=== PATIENT | male | born 1960 | race Caucasian/White ===

== ENCOUNTER 2018-03-07 11:06 | Inpatient (IN) | payer MEDICAID, OTHER, SELFPAY ==
--- NOTE | 2018-03-07 12:01 | RAD ---
CHEST 2 VIEWS: Date: 03/07/18 HISTORY: Chest pain. COMPARISON: 05/14/14. FINDINGS: Cardiac silhouette and pulmonary vasculature are unremarkable. Left hemidiaphragm remains elevated wi th scarring at the left base. Mediastinum is midline with postoperative changes. No confluent air spa ce consolidation, pneumothorax, or pleural fluid. IMPRESSION: Chronic-type findings are stable. No active cardiopulmonary abnormalities are demonstrated. POS: H
[2018-03-07] MEDS ORDERED: Ketorolac Tromethamine 30 MG/ML VIAL ONE (12:35)
[2018-03-07 12:50] LABS: ALT (SGPT) 77 U/L (8-55); AST (SGOT) 42 U/L (5-34); Albumin 4.5 g/dL (3.5-5.0); Alkaline Phosphatase 147 U/L (40-150); Anion Gap 17 mmol/L (10-20); BUN (Urea Nitrogen) 14 mg/dL (8.4-25.7); Bilirubin, Total 1.4 mg/dL (0.2-1.2); Calc. Creatinine Clearance 0 mL/min (70-130); Calcium 9.9 mg/dL (7.8-10.44); Carbon Dioxide 23 mmol/L (22-29); Chloride 102 mmol/L (98-107); Estimated GFR-MDRD 73; Globulin 3.6 g/dL (2.4-3.5); Glucose 106 mg/dL (70-105); Potassium 4.4 mmol/L (3.5-5.1); Protein, Total 8.1 g/dL (6.0-8.3); Sodium 138 mmol/L (136-145)
[2018-03-07 12:54] LABS: #Basophils 0.1 thou/uL (0.0-0.2); #Eosinphils 0.2 thou/uL (0.0-0.7); #Monocytes 0.8 thou/uL (0.11-0.59); #Neutrophils 10.5 thou/uL (1.40-6.50); %Basophils 0.4 % (0.0-1.0); %Eosinophils 1.3 % (0.0-10.0); %Lymphocytes 14.7 % (21.0-51.0); %Monocytes 5.8 % (0.0-10.0); %Neutrophils 77.8 % (42.0-75.0); Hemoglobin 15.3 g/dL (14.0-18.0); Mean Corpuscular HGB CONC 33.9 g/dL (32.0-36.0); Mean Corpuscular Hemoglobin 30.6 pg (27.0-31.0); Mean Corpuscular Volume 90.1 fL (78.0-98.0); Mean Platelet Volume 6.8 fL (7.4-10.4); Platelet Count 343 thou/uL (130-400); RBC Distribution Width 12.8 % (11.5-14.5); White Blood Cell (WBC) Count 13.5 thou/uL (4.8-10.8)
[2018-03-07] MEDS ORDERED: Nitroglycerin 0.4 MG TAB (25 Tab Bottle) ONE (14:39)
--- NOTE | 2018-03-07 15:50 | CT ---
CT ANGIOGRAM CHEST WITH CONTRAST: Date: 03/07/18 HISTORY: Chest pain. COMPARISON: Radiograph from same date. FINDINGS: Scarring right lung base. There is dilatation of the ascending aorta measuring 4.3 cm. The transverse and descending aorta are normal. There is no proximal segmental pulmonary arterial filling defect. Small hilar and subcarinal pretrach eal lymph nodes. None of these measure over 1.0 cm in short axis. No pericardial effusion. Chronic el evation left hemidiaphragm. Although incompletely evaluated, there is some inflammatory change around the second portion of the d uodenum at the pancreaticoduodenal groove. There is no acute osseous abnormality. No suspicious osteo lytic or osteoblastic lesions. IMPRESSION: 1. No proximal segment pulmonary arterial filling defect. 2. Dilatation of ascending aorta which measures up to 4.3 cm. 3. Inflammatory change along gastric pylorus, as well as first portion of duodenum, similar to the 2 015 examination. Nonemergent upper endoscopy recommended. 4. Chronic elevation left hemidiaphragm. 5. Small right gastric lymph nodes are similar. POS: ANAHI
[2018-03-07] MEDS ORDERED: Iopamidol 370 76% 100 ML VIAL ONE (17:14)
[2018-03-07 17:27] LABS: Troponin I Less than 0.010 ng/mL (< 0.028)
[2018-03-07 17:39] VITALS: BMI 22.6
[2018-03-07] MEDS ORDERED: Ondansetron ODT 4 MG TAB SL PRN (17:43)
[2018-03-07] MEDS ORDERED: Ondansetron PF 4 MG/2 ML Vial IVP PRN (17:43)
[2018-03-07] MEDS: Sodium Chloride 0.9% 1,000 ML IV SCH (17:52)
[2018-03-07] MEDS: Acetaminophen 325 MG TAB PO PRN ×2 (19:06→23:56)
[2018-03-07 20:03] LABS: Troponin I Less than 0.010 ng/mL (< 0.028)
[2018-03-07] MEDS: Morphine 4 MG/ML VIAL SLOW IVP PRN (21:49)
[2018-03-07] MEDS: Famotidine 20 MG TAB PO SCH (22:34)
--- NOTE | 2018-03-07 22:34 | PDOC.EVN ---
Event Note - Event Note Event Note: Called by nurse for several episodes of Atrial Fib, also present on new EKG. New onset. Patient has hx of Atrial flutter and had ablation in 2013. Ordered Cardizem IVP 15mg x1 dose. Will consult Cardiology in AM.
[2018-03-07 23:21] LABS: Bilirubin Negative (Negative); Blood, Urine Negative (Negative); Clarity CLEAR (Clear); Glucose, Urine (Dipstick) Negative (Negative); Leukocyte Negative (Negative); Nitrite Negative (Negative); Protein, Urine (Dipstick) Negative (Neg-Trace)
[2018-03-07 23:24] LABS: Bacteria/HPF None Seen HPF (None Seen); Hyaline Casts/LPF 0-3 HYALINE CAST LPF (0-3 Hyaline); Pathc Cast-AUWi Flag 0.14 (0-2.49); RBC/HPF 0-3 HPF (0-3); Squamous Epithelial None Seen HPF (0-3); WBC/HPF 0-3 HPF (0-3)
[2018-03-07 23:33] LABS: Cocaine Metabolite Screen Not Detected (NotDetected); Medtox Reader # READER 4; Methamphetamine Detected (NotDetected); Opiate Screen Not Detected (NotDetected); Phencyclidine (PCP) Not Detected (NotDetected); THC/Cannabinoid Screen Not Detected (NotDetected)
[2018-03-07 23:34] LABS: Amphetamine Detected (NotDetected); Barbiturates Screen Not Detected (NotDetected); Benzodiazepine Screen Not Detected (NotDetected); Medtox Control Line Valid? VALID (VALID); Methadone Not Detected (NotDetected); Oxycodone Screen Not Detected (NotDetected); Tricyclic Screen Not Detected (NotDetected)
[2018-03-07] MEDS: Zolpidem Tartrate 5 MG TAB PO PRN (23:56)
--- NOTE | 2018-03-08 00:39 | HP ---
PRIMARY CARE PHYSICIAN: None. CHIEF COMPLAINT: Chest pain. HISTORY OF PRESENT ILLNESS: This is a 57-year-old male who was admitted through the emergency room where he presented for chest pain, which he reports has been intermittent for the last week primarily. He complains of pain under his ribs, also left chest. Reports that it feels very similar to his episode of chest pain in 2013, which was diagnosed as pleurisy. Reports that he was given some NSAIDs and got better. The patient reports that he had a bypass in 2013, although I cannot find any history, but I do find in 2014, he did have an aortic valve replacement and did have a mitral valve repair by Dr. Bradley, who patient reports did the bypass 5 years ago. The patient does report he is a regular user of methamphetamine. Reports the last time he used it was a week ago. Reports he has a cough and shortness of breath with this pain and it is exacerbated by deep breath. During evaluation in the emergency room, his initial troponin was undetectable. He did undergo a CTA angio of the chest, which showed no proximal segment pulmonary artifact, arterial filling defect, dilatation of the ascending aorta which measures 4.3, some inflammatory change along the gastric pylorus, which is similar to the 2015 exam and now an emergent upper endoscopy is recommended. Chronic elevation of the left hemidiaphragm and small right gastric lymph nodes which are similar. The patient was admitted to the emergency room for further management. The patient also has history of atrial flutter and underwent ablation in June of [address] Bassett. The patient has a past medical history of COPD, seizure disorder, hypertension, also admits to smoking at least half pack of tobacco a day. The patient will be admitted to the observation unit for further management. PAST MEDICAL HISTORY: As above. PAST SURGICAL HISTORY: Aortic valve replacement, mitral valve replacement in 2013. CURRENT MEDICATIONS: None. ALLERGIES: NONE. FAMILY HISTORY: Patient denies family history of any cardiac issues. REVIEW OF SYSTEMS: CONSTITUTIONAL: The patient denies chills or fever. EYES: The patient denies eye pain. Denies vision changes. ENT: Denies rhinorrhea or sore throat. CARDIOVASCULAR: Reports chest pain. Denies palpitations. RESPIRATORY: Reports cough, some shortness of breath. GI: Denies any abdominal pain. Denies diarrhea. Denies nausea. Denies vomiting. : Denies dysuria, hematuria. MUSCULOSKELETAL: Denies back pain, fall or injury. SKIN: Denies any skin changes. NEUROLOGIC: Denies headache. PHYSICAL EXAMINATION: VITAL SIGNS: Blood pressure 137/92, pulse is 83, respirations are 20. Pain is 7, pO2 sats 98% on room air. CONSTITUTIONAL: The patient appears nontoxic, reports some mild pain and distress. He is alert and oriented to person, place, and time. HEAD: Head is atraumatic and normocephalic. EYES: Pupils are equal, round, and reactive to light. ENT: Mouth exam is normal. Mucous membranes are moist. NECK: Normal range of motion. Trachea is midline. RESPIRATORY/CHEST: Breath sounds are clear. No findings of respiratory distress. CARDIOVASCULAR: Regular heart rate and rhythm. Heart sounds are normal. ABDOMEN: Male. Abdomen is nontender. Bowel sounds are heard. BACK: Normal inspection. Normal range of motion. EXTREMITIES: Upper extremities, normal range of motion. Motor strength is normal. Sensation is intact. Lower extremities, normal range of motion. Sensation intact. Pedal pulses are normal. NEURO: The patient is oriented to person, place, and time. SKIN: Warm, dry, normal in color. PSYCH: Normal affect. PERTINENT LABORATORY DATA: White blood cell count is 13.5, hemoglobin 15.3, hematocrit 45.1, platelet count is 243. Sodium 138, potassium 4.4, chloride 102, carbon dioxide 23, anion gap is 17, BUN is 14, creatinine is 1.05, GFR is 73, glucose 106, calcium 9.9, bilirubin total is 1.4. AST is 42, ALT is 77, alkaline phosphatase is 147. Troponin x2 is undetectable. Albumin is 4.5, globulin is 3.6, lipase is 16. ASSESSMENT AND PLAN: 1. Chest pain. We will obtain an echocardiogram. We will trend troponins. We will order a stress test. 2. History of hypertension. We will trend and add medication as needed. 3. Tobacco abuse. We will offer education and counseling. 4. Deep venous thrombosis. Deep venous thrombosis prophylaxis will be started. 5. Hospital course will be dependent on clinical findings. Job ID: [id number]
[2018-03-08] MEDS: Morphine 4 MG/ML VIAL SLOW IVP PRN ×2 (01:25→16:19)
[2018-03-08] MEDS: Sodium Chloride 0.9% 1,000 ML IV SCH (04:15)
[2018-03-08 06:19] LABS: #Basophils 0.1 thou/uL (0.0-0.2); #Eosinphils 0.1 thou/uL (0.0-0.7); #Lymphocytes 2.4 thou/uL (1.20-3.40); #Neutrophils 9.2 thou/uL (1.40-6.50); %Basophils 0.6 % (0.0-1.0); %Eosinophils 0.8 % (0.0-10.0); %Lymphocytes 18.9 % (21.0-51.0); %Monocytes 7.6 % (0.0-10.0); Hemoglobin 13.1 g/dL (14.0-18.0); Mean Corpuscular HGB CONC 34.1 g/dL (32.0-36.0); Mean Corpuscular Hemoglobin 31.1 pg (27.0-31.0); Mean Corpuscular Volume 91.3 fL (78.0-98.0); Mean Platelet Volume 6.6 fL (7.4-10.4); Platelet Count 340 thou/uL (130-400); RBC Distribution Width 12.9 % (11.5-14.5); Red Blood Cell (RBC) Count 4.21 mill/uL (4.70-6.10); White Blood Cell (WBC) Count 12.8 thou/uL (4.8-10.8)
[2018-03-08 06:41] LABS: ALT (SGPT) 56 U/L (8-55); AST (SGOT) 23 U/L (5-34); Albumin 3.7 g/dL (3.5-5.0); Alkaline Phosphatase 122 U/L (40-150); Anion Gap 11 mmol/L (10-20); BUN (Urea Nitrogen) 11 mg/dL (8.4-25.7); Bilirubin, Total 0.8 mg/dL (0.2-1.2); Calc. Creatinine Clearance 98 mL/min (70-130); Calcium 8.6 mg/dL (7.8-10.44); Carbon Dioxide 22 mmol/L (22-29); Chloride 106 mmol/L (98-107); Estimated GFR-MDRD Greater than 90; Globulin 2.9 g/dL (2.4-3.5); Glucose 111 mg/dL (70-105); Protein, Total 6.6 g/dL (6.0-8.3); Sodium 135 mmol/L (136-145)
[2018-03-08] MEDS ORDERED: Enoxaparin Sodium 40 MG/0.4 ML SYRINGE SC SCH ×2 (09:00)
[2018-03-08] MEDS: Enoxaparin Sodium 80 MG/0.8 ML SYRINGE SC SCH (13:58)
[2018-03-08] MEDS: Famotidine 20 MG TAB PO SCH ×2 (13:58→20:31)
--- NOTE | 2018-03-08 15:29 | PDOC.PN ---
- Subjective Encounter Start Date: 03/08/18 Encounter Start Time: 15:27 Patient lying in bed, chest pain is stable. Denies shortness of breath. Cardiology services evaluated patient for a fib. Started on coumadin and Lovenox. No signs of bleeding at this time. Awaiting echo. - Objective Resuscitation Status - Order Detail: 03/07/18 17:54 Resuscitation Status Routine Co-Sign Provider: Resuscitation Status: FULL: Full Resuscitation Discussed with: patient MAR Reviewed: Yes Vital Signs & Weight: Vital Signs (12 hours) Temp Pulse Resp BP Pulse Ox 03/08/18 15:02 98.5 F 79 18 135/91 H 97 03/08/18 11:42 98.1 F 78 20 126/80 98 03/08/18 06:37 98.8 F 73 16 104/63 96 Weight Weight 158 lb 1 oz I&O: 03/07/18 03/08/18 03/09/18 06:59 06:59 06:59 Intake Total 2342 Output Total 210 Balance 2132 Result Diagrams: 03/08/18 05:44 03/08/18 05:44 Radiology Reviewed by me: Yes EKG Reviewed by me: Yes Phys Exam - Physical Examination Constitutional: NAD HEENT: PERRLA, moist MMs, oral pharynx no lesions Neck: no nodes, no JVD, supple Respiratory: no wheezing, no rales, no rhonchi, clear to auscultation bilateral Cardiovascular: RRR, no significant murmur, no rub Gastrointestinal: soft, non-tender, no distention, positive bowel sounds Musculoskeletal: no edema, pulses present Neurological: non-focal, normal sensation, moves all 4 limbs Lymphatic: no nodes Psychiatric: normal affect, A&O x 3 Skin: no rash, normal turgor, cap refill <2 seconds Dx/Plan (1) Chest pain Code(s): R07.9 - CHEST PAIN, UNSPECIFIED Status: Acute (2) Atrial fibrillation Code(s): I48.91 - UNSPECIFIED ATRIAL FIBRILLATION Status: Acute (3) Hypertension Code(s): I10 - ESSENTIAL (PRIMARY) HYPERTENSION Status: Acute - Plan cont current plan of care, DVT proph w/lovenox * Continue medical management with lovenox with coumadin, monitor INR * Cardiology services, Dr Still following and appreciating recommendations * Await echo results * Monitor VS and labs closely with further adjustments to meds accordingly.
[2018-03-08] MEDS: Warfarin Sodium 5 MG TAB PO SCH (16:20)
--- NOTE | 2018-03-08 17:08 | EKG ---
Test Reason : CHEST PAIN Blood Pressure : / mmHG Vent. Rate : 133 BPM Atrial Rate : 326 BPM P-R Int : 000 ms QRS Dur : 076 ms QT Int : 322 ms P-R-T Axes : 000 090 010 degrees QTc Int : 479 ms Atrial fibrillation with rapid ventricular response with premature ventricular or aberrantly conducte d complexes Rightward axis Abnormal ECG When compared with ECG of 14-MAY-2014 00:58, Atrial fibrillation has replaced Sinus rhythm ST now depressed in Inferior leads ST now depressed in Lateral leads T wave inversion now evident in Inferior leads Nonspecific T wave abnormality now evident in Lateral leads Confirmed by DR. David CUMMINS ([id number]) on 03/08/2018 5:08:00 PM Referred By: CATHY Confirmed By:DR. David CUMMINS
[2018-03-08] MEDS: Zolpidem Tartrate 5 MG TAB PO PRN (20:31)
--- NOTE | 2018-03-09 04:38 | CON ---
DATE OF CONSULTATION: HISTORY OF PRESENT ILLNESS: The patient is a 57-year-old gentleman, who presents with lower chest and abdominal discomfort. The patient has a history of valvular heart disease. In 2013, he underwent aortic valve replacement and mitral valve repair. The patient has been noncompliant with his followup and medications. The patient was in his usual state of health when a week ago, he developed discomfort along his lower ribs. This was an intermittent discomfort for several days. The discomfort lasts for approximately 3 to 4 hours at a time. It resolved for 2 days and returned a few days ago. The patient reports having the same discomfort which is more persistent. He states the discomfort was worse when he takes a deep breath. The patient received Toradol and has had no further chest discomfort. The patient was noted to have regular heart rate during his hospitalization. The patient denies any palpitations. PAST MEDICAL HISTORY: 1. Aortic valve replacement. 2. Mitral valve replacement. 3. COPD. 4. Substance abuse. 5. History of atrial flutter. PAST SURGICAL HISTORY: Aortic valve replacement and mitral valve repair. SOCIAL HISTORY: He smokes a half pack per day and uses illicit drugs. FAMILY HISTORY: No strong family history of heart disease. ALLERGIES: NO KNOWN DRUG ALLERGIES. MEDICATIONS: None. REVIEW OF SYSTEMS: A 10-point system otherwise is unremarkable. PHYSICAL EXAMINATION: GENERAL: This is a thin gentleman, who looks older than stated age. VITAL SIGNS: Blood pressure 165/94. NECK: Showed no jugular venous distention. LUNGS: Coarse breath sounds bilaterally. HEART: Regular rate and rhythm. Normal S1 and S2. No murmurs. ABDOMEN: Nondistended. EXTREMITIES: Showed no edema. VASCULAR: Radial pulses 2+. LABORATORY RESULTS: Sodium 135, potassium 4.0, chloride 106, bicarb 22, BUN 11, creatinine 0.86, glucose 111. White blood cell count 12.8, hemoglobin 13.1, hematocrit 38.5, and platelets 340. EKG revealed normal sinus rhythm, otherwise normal ECG. Follow up EKG #2 revealed atrial fibrillation with nonspecific ST abnormality. IMPRESSION: 1. Chest pain, atypical. 2. History aortic valve replacement/mitral valve replacement. 3. New onset atrial fibrillation. 4. History of atrial flutter. 5. Chronic obstructive pulmonary disease. 6. Substance abuse. This gentleman presented with atypical chest pain. This is suggestive of pleurisy. The patient has new onset atrial fibrillation. He has several risk factors. I would recommend the patient be on anticoagulation therapy. However, he has a long history of illicit drug use and noncompliance. We will start the patient on Lovenox and Coumadin. We will follow this patient with you through his hospitalization. Job ID: [id number] MTDD
[2018-03-09 05:40] LABS: #Basophils 0.1 thou/uL (0.0-0.2); #Eosinphils 0.2 thou/uL (0.0-0.7); #Lymphocytes 2.7 thou/uL (1.20-3.40); #Neutrophils 8.6 thou/uL (1.40-6.50); %Basophils 0.7 % (0.0-1.0); %Eosinophils 1.3 % (0.0-10.0); %Lymphocytes 21.2 % (21.0-51.0); %Monocytes 8.2 % (0.0-10.0); %Neutrophils 68.6 % (42.0-75.0); Hemoglobin 14.3 g/dL (14.0-18.0); Mean Corpuscular Hemoglobin 31.1 pg (27.0-31.0); Mean Corpuscular Volume 91.6 fL (78.0-98.0); Mean Platelet Volume 6.3 fL (7.4-10.4); Platelet Count 393 thou/uL (130-400); RBC Distribution Width 12.9 % (11.5-14.5); Red Blood Cell (RBC) Count 4.58 mill/uL (4.70-6.10); White Blood Cell (WBC) Count 12.6 thou/uL (4.8-10.8)
[2018-03-09 06:08] LABS: ALT (SGPT) 51 U/L (8-55); AST (SGOT) 23 U/L (5-34); Albumin 3.8 g/dL (3.5-5.0); Alkaline Phosphatase 130 U/L (40-150); Anion Gap 12 mmol/L (10-20); BUN (Urea Nitrogen) 13 mg/dL (8.4-25.7); Bilirubin, Total 0.8 mg/dL (0.2-1.2); Calc. Creatinine Clearance 91 mL/min (70-130); Calcium 9.3 mg/dL (7.8-10.44); Carbon Dioxide 26 mmol/L (22-29); Chloride 104 mmol/L (98-107); Estimated GFR-MDRD 84; Globulin 3.2 g/dL (2.4-3.5); Glucose 96 mg/dL (70-105); Potassium 4.4 mmol/L (3.5-5.1); Sodium 138 mmol/L (136-145)
[2018-03-09] MEDS: Famotidine 20 MG TAB PO SCH ×2 (08:06→20:24)
[2018-03-09] MEDS: Enoxaparin Sodium 80 MG/0.8 ML SYRINGE SC SCH (08:06)
[2018-03-09] MEDS ORDERED: traMADol HCl 50 MG TAB PO PRN (16:05)
[2018-03-09] MEDS ORDERED: Acetaminophen 325 MG TAB PO PRN (16:05)
[2018-03-09] MEDS: Warfarin Sodium 5 MG TAB PO SCH (16:31)
--- NOTE | 2018-03-09 16:49 | PDOC.EVN ---
Event Note - Event Note Event Note: discussed management with Jing DOVER, agree with management
[2018-03-09] MEDS ORDERED: Warfarin Sodium 2.5 MG TAB PO SCH (17:00)
--- NOTE | 2018-03-09 17:18 | PDOC.PN ---
- Subjective Encounter Start Date: 03/09/18 Encounter Start Time: 17:16 Patient lying in bed, denies any events over night. Denies chest pain or shortness of breath. Echo showing EF 55-60%, continuing on coumadin and lovenox. - Objective Resuscitation Status - Order Detail: 03/07/18 17:54 Resuscitation Status Routine Co-Sign Provider: Resuscitation Status: FULL: Full Resuscitation Discussed with: patient MAR Reviewed: Yes Vital Signs & Weight: Vital Signs (12 hours) Temp Pulse Resp BP BP Pulse Ox 03/09/18 15:10 98.7 F 76 21 H 142/67 H 98 03/09/18 11:50 98.2 F 79 16 126/74 96 03/09/18 08:00 99 F 80 16 134/77 95 Weight Weight 158 lb 1 oz I&O: 03/08/18 03/09/18 03/10/18 06:59 06:59 06:59 Intake Total 2342 1200 Output Total 210 600 Balance 2132 600 Result Diagrams: 03/09/18 05:33 03/09/18 05:33 Radiology Reviewed by me: Yes Phys Exam - Physical Examination Constitutional: NAD HEENT: PERRLA, moist MMs, 2+ tonsils Neck: no nodes, no JVD, supple Respiratory: no wheezing, no rales, no rhonchi, clear to auscultation bilateral Cardiovascular: RRR, no significant murmur, no rub Gastrointestinal: soft, non-tender, no distention, positive bowel sounds Musculoskeletal: no edema, pulses present Neurological: non-focal, normal sensation, moves all 4 limbs Lymphatic: no nodes Psychiatric: normal affect, A&O x 3 Skin: no rash, normal turgor, cap refill <2 seconds Dx/Plan (1) Chest pain Code(s): R07.9 - CHEST PAIN, UNSPECIFIED Status: Acute (2) Atrial fibrillation Code(s): I48.91 - UNSPECIFIED ATRIAL FIBRILLATION Status: Acute (3) Hypertension Code(s): I10 - ESSENTIAL (PRIMARY) HYPERTENSION Status: Acute - Plan cont current plan of care, DVT proph w/lovenox * Continue lovenox and coumadin, add 2.5mg coumadin for total of 7.5mg tonight * Monitor PT/INR, goal is 2.5-3.5 * Continue current medical management * Cardiology services following
[2018-03-10 06:52] LABS: Platelet Count 399 thou/uL (130-400)
[2018-03-10 06:59] LABS: INR-International Normal Ratio 1.1; Prothrombin Time 13.9 SEC (12.0-14.7)
[2018-03-10 07:04] LABS: Calc. Creatinine Clearance 100 mL/min (70-130); Estimated GFR-MDRD Greater than 90
[2018-03-10] MEDS: Enoxaparin Sodium 80 MG/0.8 ML SYRINGE SC SCH (09:28)
[2018-03-10] MEDS: Famotidine 20 MG TAB PO SCH (09:28)
[2018-03-10 15:41] VITALS: BP 136/75; TEMP 98
[2018-03-10] MEDS: Warfarin Sodium 5 MG TAB PO SCH (17:47)
== END 2018-03-10 17:48 | disposition home or self-care (01) | DRG 310 ==
LOC: ERS 11:06 → OBSVTOIN 16:23 → 2SW 16:23
PROVIDERS: ADMIT Internal Medicine; ATTEND Internal Medicine
PROC: B246ZZZ Ultrasonography of Right and Left Heart (ICD-10-PCS; principal; 2018-03-09)
DX: I48.91 Unspecified atrial fibrillation (principal); I10 Essential (primary) hypertension; Z91.14 Patient's other noncompliance with medication regimen; J44.9 Chronic obstructive pulmonary disease, unspecified; F19.10 Other psychoactive substance abuse, uncomplicated; R09.1 Pleurisy; Z95.2 Presence of prosthetic heart valve
CPT/HCPCS: 36415; 71046; 71275; 80053; 80306; 81001; 82565; 83690; 84484; 85014; 85018; 85025; 85049; 85610; 93005; 93010; 93306; 94640; 96374; J1650; J1885; J2270; J2405

== ENCOUNTER 2020-06-03 11:22 | Inpatient (IN) | payer SELFPAY ==
[2020-06-03 12:04] LABS: #Basophils 0.1 thou/uL (0.0-0.2); #Eosinphils 0.1 thou/uL (0.0-0.7); #Lymphocytes 2.1 thou/uL (1.20-3.40); #Monocytes 0.9 thou/uL (0.11-0.59); #Neutrophils 7.7 thou/uL (1.40-6.50); %Basophils 0.6 % (0.0-1.0); %Lymphocytes 19.5 % (21.0-51.0); %Monocytes 8.2 % (0.0-10.0); %Neutrophils 70.7 % (42.0-75.0); Hemoglobin 13.7 g/dL (14.0-18.0); Mean Corpuscular HGB CONC 32.3 g/dL (32.0-36.0); Mean Corpuscular Hemoglobin 30.1 pg (27.0-31.0); Mean Corpuscular Volume 93.2 fL (78.0-98.0); Mean Platelet Volume 7.3 fL (7.4-10.4); Platelet Count 223 thou/uL (130-400); Red Blood Cell (RBC) Count 4.53 mill/uL (4.70-6.10); White Blood Cell (WBC) Count 10.9 thou/uL (4.8-10.8)
[2020-06-03 12:23] LABS: ALT (SGPT) 35 U/L (8-55); AST (SGOT) 25 U/L (5-34); Albumin 3.3 g/dL (3.5-5.0); Alkaline Phosphatase 197 U/L (40-110); Anion Gap 13 mmol/L (10-20); BUN (Urea Nitrogen) 17 mg/dL (8.4-25.7); Bilirubin, Total 2.6 mg/dL (0.2-1.2); Calc. Creatinine Clearance 0 mL/min (70-130); Calcium 8.5 mg/dL (7.8-10.44); Carbon Dioxide 28 mmol/L (22-29); Chloride 104 mmol/L (98-107); Globulin 3.1 g/dL (2.4-3.5); Glucose 123 mg/dL (70-105); Potassium 3.6 mmol/L (3.5-5.1); Protein, Total 6.4 g/dL (6.0-8.3); Sodium 141 mmol/L (136-145)
[2020-06-03 12:48] LABS: CKMB 9.4 ng/mL (0-6.6)
[2020-06-03] MEDS ORDERED: Aspirin Chewable 81 MG TAB ONE (12:50)
[2020-06-03] MEDS ORDERED: Diltiazem 125 MG/25 ML ONE (12:50)
[2020-06-03] MEDS ORDERED: Enoxaparin Sodium 80 MG/0.8 ML SYRINGE ONE (12:50)
[2020-06-03] MEDS ORDERED: Furosemide 40 MG/4 ML VIAL SLOW IVP SCH (13:45)
[2020-06-03 13:47] LABS: INR-International Normal Ratio 1.1; PTT 27.1 sec (22.9-36.1); Prothrombin Time 14.3 sec (12.0-14.7)
[2020-06-03] MEDS ORDERED: Ondansetron ODT 4 MG TAB PO PRN (13:51)
[2020-06-03] MEDS ORDERED: Acetaminophen 325 MG TAB PO PRN (13:51)
[2020-06-03] MEDS ORDERED: Calcium Carbonate 500 MG ChewTAB PO PRN (13:51)
[2020-06-03] MEDS ORDERED: Ondansetron PF 4 MG/2 ML Vial IVP PRN (13:51)
[2020-06-03 14:04] LABS: SARS-CoV-2 NAA Rapid Test Not Detected (NotDetected)
[2020-06-03] MEDS ORDERED: Ipratropium Oral Inhaler INH PRN (14:26)
[2020-06-03] MEDS ORDERED: Magnesium 2 GM/50 ML 2 GM in Premix Bag 1 BAG IVPB SCH (14:30)
[2020-06-03 15:21] VITALS: BMI 24.4
[2020-06-03] MEDS: Nicotine 14 MG PATCH TD SCH (16:05)
[2020-06-03] MEDS: Nitroglycerin 2% Ointment 1 INCH/1 GM Packet TOP SCH ×2 (16:13→20:37)
[2020-06-03 16:58] LABS: Bacteria/HPF None Seen HPF (None Seen); Bilirubin Negative (Negative); Blood, Urine Negative (Negative); Clarity Clear (Clear); Glucose, Urine (Dipstick) Normal (Negative); Ketone, Urine Negative (Negative); Leukocyte Negative Leu/uL (Negative); Nitrite Negative (Negative); Protein, Urine (Dipstick) Negative (Neg-Trace); RBC/HPF 0-3 HPF (0-3); Specific Gravity, Urine 1.015 (1.002-1.036); Squamous Epithelial None Seen HPF (0-3); WBC/HPF 0-3 HPF (0-3); pH, Urine 5.5 (5.0-9.0)
[2020-06-03 18:13] LABS: Amphetamine Detected (NotDetected); Barbiturates Screen Not Detected (NotDetected); Benzodiazepine Screen Not Detected (NotDetected); Cocaine Metabolite Screen Not Detected (NotDetected); Medtox Reader # READER 1; Methadone Not Detected (NotDetected); Methamphetamine Detected (NotDetected); Opiate Screen Not Detected (NotDetected); Phencyclidine (PCP) Not Detected (NotDetected); THC/Cannabinoid Screen Not Detected (NotDetected); Tricyclic Screen Not Detected (NotDetected)
[2020-06-03 18:14] LABS: Medtox Control Line Valid? VALID (VALID); Oxycodone Screen Not Detected (NotDetected)
[2020-06-03 18:38] LABS: Troponin I 0.033 ng/mL (< 0.028)
[2020-06-03] MEDS: Enoxaparin Sodium 80 MG/0.8 ML SYRINGE SC SCH (20:38)
[2020-06-04] MEDS: Diltiazem 125 MG in Sodium Chloride 0.9% 100 ML IVPB SCH (04:15)
[2020-06-04] MEDS: Nitroglycerin 2% Ointment 1 INCH/1 GM Packet TOP SCH ×4 (04:18→20:33)
[2020-06-04 04:30] LABS: #Basophils 0.1 thou/uL (0.0-0.2); #Eosinphils 0.2 thou/uL (0.0-0.7); #Lymphocytes 2.6 thou/uL (1.20-3.40); #Monocytes 0.9 thou/uL (0.11-0.59); #Neutrophils 6.7 thou/uL (1.40-6.50); %Basophils 0.9 % (0.0-1.0); %Eosinophils 2.3 % (0.0-10.0); %Lymphocytes 24.7 % (21.0-51.0); %Monocytes 8.9 % (0.0-10.0); %Neutrophils 63.1 % (42.0-75.0); Hemoglobin 13.6 g/dL (14.0-18.0); Mean Corpuscular HGB CONC 32.6 g/dL (32.0-36.0); Mean Corpuscular Hemoglobin 30.3 pg (27.0-31.0); Mean Corpuscular Volume 93.1 fL (78.0-98.0); Mean Platelet Volume 7.3 fL (7.4-10.4); Platelet Count 228 thou/uL (130-400); RBC Distribution Width 13.2 % (11.5-14.5); Red Blood Cell (RBC) Count 4.47 mill/uL (4.70-6.10); White Blood Cell (WBC) Count 10.6 thou/uL (4.8-10.8)
[2020-06-04 04:53] LABS: ALT (SGPT) 35 U/L (8-55); AST (SGOT) 22 U/L (5-34); Albumin 3.2 g/dL (3.5-5.0); Alkaline Phosphatase 194 U/L (40-110); Anion Gap 16 mmol/L (10-20); BUN (Urea Nitrogen) 17 mg/dL (8.4-25.7); Bilirubin, Total 2.5 mg/dL (0.2-1.2); Calc. Creatinine Clearance 77 mL/min (70-130); Calcium 8.5 mg/dL (7.8-10.44); Carbon Dioxide 22 mmol/L (22-29); Chloride 104 mmol/L (98-107); Glucose 84 mg/dL (70-105); Potassium 3.6 mmol/L (3.5-5.1); Protein, Total 6.5 g/dL (6.0-8.3); Sodium 138 mmol/L (136-145)
[2020-06-04 05:11] LABS: HBCM Index 0.05 S/CO (0-0.79); HBSAg Index 0.24 S/CO (0-0.99); Hep A IgM AB Non-Reactive (NonReactive); Hep A IgM S/CO 0.35 S/CO (0-0.79); Hep B Surf Ag Non-Reactive S/CO (NonReactive); Hep C IgG Ab Non-Reactive (NonReactive); Hep C Index 0.06 S/CO (0-0.79); Hepatitis B Core IgM Abs Non-Reactive (NonReactive)
[2020-06-04] MEDS: Enoxaparin Sodium 80 MG/0.8 ML SYRINGE SC SCH ×2 (07:54→20:34)
[2020-06-04] MEDS: Aspirin 81 mg Enteric Coated Tablet PO SCH (07:54)
[2020-06-04] MEDS: Nicotine 14 MG PATCH TD SCH (15:06)
[2020-06-05] MEDS: Diltiazem 125 MG in Sodium Chloride 0.9% 100 ML IVPB SCH (01:56)
[2020-06-05 04:34] LABS: #Basophils 0.1 thou/uL (0.0-0.2); #Eosinphils 0.2 thou/uL (0.0-0.7); #Lymphocytes 2.5 thou/uL (1.20-3.40); #Monocytes 0.9 thou/uL (0.11-0.59); #Neutrophils 7.3 thou/uL (1.40-6.50); %Basophils 0.7 % (0.0-1.0); %Eosinophils 1.8 % (0.0-10.0); %Lymphocytes 22.5 % (21.0-51.0); %Monocytes 8.6 % (0.0-10.0); %Neutrophils 66.4 % (42.0-75.0); Hemoglobin 13.7 g/dL (14.0-18.0); Mean Corpuscular HGB CONC 30.7 g/dL (32.0-36.0); Mean Corpuscular Hemoglobin 28.4 pg (27.0-31.0); Mean Corpuscular Volume 92.8 fL (78.0-98.0); Platelet Count 251 thou/uL (130-400); RBC Distribution Width 13.2 % (11.5-14.5); White Blood Cell (WBC) Count 10.9 thou/uL (4.8-10.8)
[2020-06-05 04:53] LABS: Anion Gap 10 mmol/L (10-20); BUN (Urea Nitrogen) 17 mg/dL (8.4-25.7); Calc. Creatinine Clearance 92 mL/min (70-130); Calcium 8.5 mg/dL (7.8-10.44); Carbon Dioxide 27 mmol/L (22-29); Chloride 104 mmol/L (98-107); Glucose 89 mg/dL (70-105); Potassium 3.8 mmol/L (3.5-5.1); Sodium 137 mmol/L (136-145)
[2020-06-05] MEDS: Nitroglycerin 2% Ointment 1 INCH/1 GM Packet TOP SCH (05:11)
[2020-06-05] MEDS: Enoxaparin Sodium 80 MG/0.8 ML SYRINGE SC SCH ×2 (09:23→20:45)
[2020-06-05] MEDS: Aspirin 81 mg Enteric Coated Tablet PO SCH (09:23)
[2020-06-05] MEDS ORDERED: Furosemide 40 MG/4 ML VIAL SLOW IVP SCH (09:30)
[2020-06-05] MEDS ORDERED: Carvedilol 6.25 MG TAB PO SCH (09:45)
[2020-06-05] MEDS: Nicotine 14 MG PATCH TD SCH (14:38)
[2020-06-05] MEDS: Carvedilol 6.25 MG TAB PO SCH (16:55)
[2020-06-06 04:49] LABS: #Basophils 0.1 thou/uL (0.0-0.2); #Eosinphils 0.1 thou/uL (0.0-0.7); #Neutrophils 5.9 thou/uL (1.40-6.50); %Basophils 0.7 % (0.0-1.0); %Eosinophils 1.6 % (0.0-10.0); %Lymphocytes 22.5 % (21.0-51.0); %Monocytes 10.5 % (0.0-10.0); %Neutrophils 64.7 % (42.0-75.0); Mean Corpuscular HGB CONC 32.4 g/dL (32.0-36.0); Mean Corpuscular Hemoglobin 30.2 pg (27.0-31.0); Mean Corpuscular Volume 93.2 fL (78.0-98.0); Mean Platelet Volume 7.1 fL (7.4-10.4); Platelet Count 225 thou/uL (130-400); RBC Distribution Width 13.2 % (11.5-14.5); Red Blood Cell (RBC) Count 4.61 mill/uL (4.70-6.10); White Blood Cell (WBC) Count 9.1 thou/uL (4.8-10.8)
[2020-06-06 05:13] LABS: Anion Gap 15 mmol/L (10-20); BUN (Urea Nitrogen) 15 mg/dL (8.4-25.7); Calc. Creatinine Clearance 102 mL/min (70-130); Calcium 8.4 mg/dL (7.8-10.44); Carbon Dioxide 22 mmol/L (22-29); Chloride 104 mmol/L (98-107); Glucose 92 mg/dL (70-105); Potassium 3.9 mmol/L (3.5-5.1); Sodium 137 mmol/L (136-145)
[2020-06-06] MEDS: Aspirin 81 mg Enteric Coated Tablet PO SCH (08:02)
[2020-06-06] MEDS: Carvedilol 6.25 MG TAB PO SCH ×2 (08:02→16:48)
[2020-06-06] MEDS: Enoxaparin Sodium 80 MG/0.8 ML SYRINGE SC SCH ×2 (08:02→20:40)
[2020-06-06] MEDS ORDERED: Digoxin 0.5 MG/2 ML AMP SLOW IVP SCH (09:00)
[2020-06-06] MEDS ORDERED: Furosemide 40 MG/4 ML VIAL SLOW IVP SCH (09:15)
[2020-06-06] MEDS ORDERED: Digoxin 0.25 MG TAB PO SCH (12:00)
[2020-06-06] MEDS: Nicotine 14 MG PATCH TD SCH (14:30)
[2020-06-07] MEDS ORDERED: Melatonin 3 MG TAB PO PRN (00:45)
[2020-06-07 04:35] LABS: #Basophils 0.1 thou/uL (0.0-0.2); #Eosinphils 0.2 thou/uL (0.0-0.7); #Lymphocytes 2.4 thou/uL (1.20-3.40); #Neutrophils 6.1 thou/uL (1.40-6.50); %Basophils 1.3 % (0.0-1.0); %Lymphocytes 24.5 % (21.0-51.0); %Monocytes 10.5 % (0.0-10.0); %Neutrophils 61.7 % (42.0-75.0); Hemoglobin 14.2 g/dL (14.0-18.0); Mean Corpuscular HGB CONC 32.3 g/dL (32.0-36.0); Mean Corpuscular Hemoglobin 30.1 pg (27.0-31.0); Mean Corpuscular Volume 93.1 fL (78.0-98.0); Platelet Count 252 thou/uL (130-400); RBC Distribution Width 13.2 % (11.5-14.5); Red Blood Cell (RBC) Count 4.71 mill/uL (4.70-6.10); White Blood Cell (WBC) Count 9.9 thou/uL (4.8-10.8)
[2020-06-07 04:49] LABS: Anion Gap 11 mmol/L (10-20); BUN (Urea Nitrogen) 13 mg/dL (8.4-25.7); Calc. Creatinine Clearance 95 mL/min (70-130); Carbon Dioxide 28 mmol/L (22-29); Chloride 102 mmol/L (98-107); Glucose 103 mg/dL (70-105); Potassium 3.5 mmol/L (3.5-5.1); Sodium 137 mmol/L (136-145)
[2020-06-07] MEDS ORDERED: Digoxin 0.25 MG TAB PO SCH (09:00)
[2020-06-07] MEDS: Carvedilol 6.25 MG TAB PO SCH (09:17)
[2020-06-07] MEDS: Aspirin 81 mg Enteric Coated Tablet PO SCH (09:18)
[2020-06-07] MEDS: Enoxaparin Sodium 80 MG/0.8 ML SYRINGE SC SCH (09:21)
[2020-06-07 14:53] VITALS: TEMP 98.9
[2020-06-07] MEDS: Nicotine 14 MG PATCH TD SCH (15:22)
[2020-06-07 15:26] VITALS: BP 102/70
== END 2020-06-07 13:25 | disposition home or self-care (01) | DRG 308 ==
LOC: ERS 11:22 → 2NO 13:16
PROVIDERS: ADMIT Internal Medicine; ATTEND Internal Medicine
DX: I48.91 Unspecified atrial fibrillation (principal); I50.23 Acute on chronic systolic (congestive) heart failure; Z20.822 Contact with and (suspected) exposure to COVID-19; J44.9 Chronic obstructive pulmonary disease, unspecified; F32.9 Major depressive disorder, single episode, unspecified; I11.0 Hypertensive heart disease with heart failure; F17.210 Nicotine dependence, cigarettes, uncomplicated; I08.1 Rheumatic disorders of both mitral and tricuspid valves; F15.10 Other stimulant abuse, uncomplicated; K76.1 Chronic passive congestion of liver; Z95.2 Presence of prosthetic heart valve; Z79.899 Other long term (current) drug therapy; Z91.14 Patient's other noncompliance with medication regimen; Z79.01 Long term (current) use of anticoagulants
CPT/HCPCS: 0240U; 36415; 71045; 80048; 80053; 80074; 80076; 80306; 81001; 82553; 82977; 83690; 83735; 83880; 84443; 84484; 85025; 85610; 85730; 93005; 93306; 93798; 93970; 94640; 94760; 96365; 96366; 96372; 96376; J1160; J1650; J1940; J3475; J3490; J7620

== ENCOUNTER 2020-08-02 15:43 | Inpatient (IN) | payer SELFPAY ==
[2020-08-02 18:26] LABS: #Basophils 0.1 thou/uL (0.0-0.2); #Eosinphils 0.3 thou/uL (0.0-0.7); #Lymphocytes 2.3 thou/uL (1.20-3.40); #Monocytes 0.9 thou/uL (0.11-0.59); #Neutrophils 6.4 thou/uL (1.40-6.50); %Basophils 0.5 % (0.0-1.0); %Eosinophils 2.9 % (0.0-10.0); %Lymphocytes 23.6 % (21.0-51.0); %Monocytes 8.9 % (0.0-10.0); Hemoglobin 13.7 g/dL (14.0-18.0); Mean Corpuscular HGB CONC 31.8 g/dL (32.0-36.0); Mean Corpuscular Hemoglobin 28.7 pg (27.0-31.0); Mean Corpuscular Volume 90.2 fL (78.0-98.0); Mean Platelet Volume 7.1 fL (7.4-10.4); Platelet Count 244 thou/uL (130-400); RBC Distribution Width 15.2 % (11.5-14.5); White Blood Cell (WBC) Count 9.9 thou/uL (4.8-10.8)
[2020-08-02 18:51] LABS: ALT (SGPT) 31 U/L (8-55); AST (SGOT) 26 U/L (5-34); Albumin 3.6 g/dL (3.5-5.0); Alkaline Phosphatase 217 U/L (40-110); Anion Gap 11 mmol/L (10-20); BUN (Urea Nitrogen) 12 mg/dL (8.4-25.7); Bilirubin, Total 2.1 mg/dL (0.2-1.2); Calc. Creatinine Clearance 0 mL/min (70-130); Calcium 8.8 mg/dL (7.8-10.44); Carbon Dioxide 26 mmol/L (22-29); Chloride 107 mmol/L (98-107); Globulin 3.5 g/dL (2.4-3.5); Glucose 95 mg/dL (70-105); Potassium 3.6 mmol/L (3.5-5.1); Protein, Total 7.1 g/dL (6.0-8.3); Sodium 140 mmol/L (136-145)
[2020-08-02] MEDS ORDERED: Diltiazem HCl 125 MG, Admixture Fee 1 EACH in Sodium Chloride 0.9% 100 ML IVPB SCH (19:15)
[2020-08-02] MEDS ORDERED: Zolpidem Tartrate 5 MG TAB PO PRN (21:09)
[2020-08-02] MEDS ORDERED: Acetaminophen 325 MG TAB PO PRN (21:09)
[2020-08-02] MEDS ORDERED: Bisacodyl 5 MG TAB PO PRN (21:09)
[2020-08-02] MEDS ORDERED: HYDROcodone/Acetaminophen 7.5/325 mg Tablet PO PRN (21:09)
[2020-08-02] MEDS ORDERED: Furosemide 40 MG/4 ML VIAL SLOW IVP SCH (21:15)
[2020-08-02] MEDS ORDERED: Digoxin 0.5 MG/2 ML AMP SLOW IVP SCH (21:15)
[2020-08-02] MEDS: cefTRIAXone\\ROCEPHIN 1 GM in Sodium Chloride 0.9% 100 ML IVPB SCH (22:45)
[2020-08-02] MEDS: Nicotine 21 MG PATCH TD SCH (23:09)
[2020-08-02 23:15] LABS: Troponin I 0.012 ng/mL (< 0.028)
[2020-08-02 23:20] LABS: SARS-CoV-2 NAA Rapid Test Not Detected (NotDetected)
[2020-08-03 01:27] VITALS: BMI 23.8
[2020-08-03 03:02] LABS: ALT (SGPT) 28 U/L (8-55); AST (SGOT) 24 U/L (5-34); Albumin 3.4 g/dL (3.5-5.0); Alkaline Phosphatase 204 U/L (40-110); Anion Gap 10 mmol/L (10-20); BUN (Urea Nitrogen) 12 mg/dL (8.4-25.7); Bilirubin, Total 2.1 mg/dL (0.2-1.2); Calc. Creatinine Clearance 84 mL/min (70-130); Calcium 9.2 mg/dL (7.8-10.44); Carbon Dioxide 29 mmol/L (22-29); Chloride 104 mmol/L (98-107); Globulin 3.3 g/dL (2.4-3.5); Glucose 134 mg/dL (70-105); Magnesium 1.7 mg/dL (1.6-2.6); Potassium 3.3 mmol/L (3.5-5.1); Protein, Total 6.7 g/dL (6.0-8.3); Sodium 140 mmol/L (136-145)
[2020-08-03 03:18] LABS: Band 11 % (5-11); Eosinophils 5 % (0-10); Hemoglobin 13.4 g/dL (14.0-18.0); Lymphocytes 29 % (21-51); MDiff Complete? YES; Mean Corpuscular HGB CONC 33.6 g/dL (32.0-36.0); Mean Corpuscular Hemoglobin 30.2 pg (27.0-31.0); Mean Corpuscular Volume 89.9 fL (78.0-98.0); Mean Platelet Volume 7.1 fL (7.4-10.4); Monocytes 7 % (0-10); Neutrophil 47 % (42-75); Platelet Count 224 thou/uL (130-400); RBC Distribution Width 15.1 % (11.5-14.5); Red Blood Cell (RBC) Count 4.44 mill/uL (4.70-6.10); White Blood Cell (WBC) Count 10.7 thou/uL (4.8-10.8)
[2020-08-03] MEDS: Furosemide 40 MG/4 ML VIAL SLOW IVP SCH ×3 (06:00→14:35)
[2020-08-03] MEDS ORDERED: Prevnar 13-Val Conj/PF 0.5 ML SYRINGE IM ONE (09:00)
[2020-08-03] MEDS: Digoxin 0.25 MG TAB PO SCH (09:54)
[2020-08-03] MEDS: Apixaban 5 MG TAB PO SCH ×2 (09:54→21:18)
[2020-08-03] MEDS: Carvedilol 6.25 MG TAB PO SCH ×2 (09:54→16:46)
[2020-08-03 13:09] LABS: Bacteria/HPF None Seen HPF (None Seen); Bilirubin Negative (Negative); Blood, Urine Negative (Negative); Clarity Clear (Clear); Glucose, Urine (Dipstick) Normal (Negative); Ketone, Urine Negative (Negative); Leukocyte Negative Leu/uL (Negative); Nitrite Negative (Negative); Protein, Urine (Dipstick) Negative (Neg-Trace); RBC/HPF 0-3 HPF (0-3); Specific Gravity, Urine 1.008 (1.002-1.036); Squamous Epithelial 0-3 HPF (0-3); Urobilinogen Normal mg/dL (Less than 2); WBC/HPF 0-3 HPF (0-3); pH, Urine 7.5 (5.0-9.0)
[2020-08-03 13:20] LABS: Urine Culture Reflex No No
[2020-08-03] MEDS: Nicotine 21 MG PATCH TD SCH (21:18)
[2020-08-03] MEDS: cefTRIAXone\\ROCEPHIN 1 GM in Sodium Chloride 0.9% 100 ML IVPB SCH (21:21)
[2020-08-04] MEDS: Carvedilol 6.25 MG TAB PO SCH (10:01)
[2020-08-04] MEDS: Apixaban 5 MG TAB PO SCH (10:01)
[2020-08-04] MEDS: Digoxin 0.25 MG TAB PO SCH (10:01)
[2020-08-04] MEDS: Furosemide 40 MG/4 ML VIAL SLOW IVP SCH ×2 (10:03→14:28)
[2020-08-04] MEDS ORDERED: Potassium Chloride 20 MEQ TAB PO SCH (11:30)
[2020-08-04 11:35] VITALS: BP 110/57; TEMP 97.1
== END 2020-08-04 15:25 | disposition home or self-care (01) | DRG 291 ==
LOC: ERS 15:43 → 2NO 19:51
PROVIDERS: ADMIT Internal Medicine; ATTEND Internal Medicine
DX: I11.0 Hypertensive heart disease with heart failure (principal); J18.9 Pneumonia, unspecified organism; J44.0 Chronic obstructive pulmonary disease with (acute) lower respiratory infection; I50.23 Acute on chronic systolic (congestive) heart failure; I48.91 Unspecified atrial fibrillation; F17.210 Nicotine dependence, cigarettes, uncomplicated; I34.0 Nonrheumatic mitral (valve) insufficiency; J44.9 Chronic obstructive pulmonary disease, unspecified; F32.9 Major depressive disorder, single episode, unspecified; Z20.822 Contact with and (suspected) exposure to COVID-19; Z95.2 Presence of prosthetic heart valve; Z79.01 Long term (current) use of anticoagulants; Z91.14 Patient's other noncompliance with medication regimen; Z79.82 Long term (current) use of aspirin; Z86.59 Personal history of other mental and behavioral disorders; Z95.1 Presence of aortocoronary bypass graft
CPT/HCPCS: 36415; 71045; 80053; 81001; 83735; 83880; 84443; 84484; 85007; 85025; 85027; 93005; 93970; 96374; J0696; J1160; J1940; J3490; U0002; U0005

== ENCOUNTER 2021-04-24 18:04 | Inpatient (IN) | payer SELFPAY ==
[2021-04-24 19:22] LABS: #Basophils 0.1 thou/uL (0.0-0.2); #Eosinphils 0.4 thou/uL (0.0-0.7); #Lymphocytes 1.4 thou/uL (1.20-3.40); #Neutrophils 6.7 thou/uL (1.40-6.50); %Basophils 0.6 % (0.0-1.0); %Eosinophils 4.3 % (0.0-10.0); %Lymphocytes 14.5 % (21.0-51.0); %Monocytes 10.3 % (0.0-10.0); %Neutrophils 70.4 % (42.0-75.0); Hemoglobin 16.6 g/dL (14.0-18.0); Mean Corpuscular HGB CONC 32.8 g/dL (32.0-36.0); Mean Corpuscular Hemoglobin 31.7 pg (27.0-31.0); Mean Corpuscular Volume 96.8 fL (78.0-98.0); Mean Platelet Volume 7.2 fL (7.4-10.4); Platelet Count 219 thou/uL (130-400); RBC Distribution Width 12.8 % (11.5-14.5); Red Blood Cell (RBC) Count 5.24 mill/uL (4.70-6.10); White Blood Cell (WBC) Count 9.6 thou/uL (4.8-10.8)
[2021-04-24 19:53] LABS: ALT (SGPT) 64 U/L (8-55); AST (SGOT) 44 U/L (5-34); Albumin 3.9 g/dL (3.5-5.0); Alkaline Phosphatase 189 U/L (40-110); Anion Gap 15 mmol/L (10-20); BUN (Urea Nitrogen) 16 mg/dL (8.4-25.7); Bilirubin, Total 1.6 mg/dL (0.2-1.2); Calcium 8.7 mg/dL (7.8-10.44); Carbon Dioxide 26 mmol/L (22-29); Chloride 103 mmol/L (98-107); Globulin 3.7 g/dL (2.4-3.5); Glucose 72 mg/dL (70-105); Potassium 4.8 mmol/L (3.5-5.1); Protein, Total 7.6 g/dL (6.0-8.3); Sodium 139 mmol/L (136-145)
[2021-04-24 20:14] LABS: Calc. Creatinine Clearance 0 mL/min (70-130)
[2021-04-24] MEDS ORDERED: Acetaminophen 500 MG TAB ONE ×2 (20:29→20:30)
[2021-04-24 21:01] LABS: SARS-CoV-2 NAA Rapid Test Not Detected (NotDetected)
[2021-04-24 21:04] LABS: Bacteria/HPF 2+ HPF (None Seen); Bilirubin Negative (Negative); Blood, Urine Negative (Negative); Clarity Clear (Clear); Glucose, Urine (Dipstick) Normal (Negative); Ketone, Urine Negative (Negative); Leukocyte 500 Leu/uL (Negative); Nitrite Negative (Negative); Protein, Urine (Dipstick) Negative (Neg-Trace); RBC/HPF 0-3 HPF (0-3); Renal Epithelial 0-3 HPF (None Seen); Specific Gravity, Urine 1.024 (1.002-1.036); Squamous Epithelial 0-3 HPF (0-3); Urobilinogen 12 mg/dL (Less than 2); WBC/HPF Greater than 50 HPF (0-3)
[2021-04-24] MEDS ORDERED: cefTRIAXone\\ROCEPHIN 2 GM VIAL ONE (21:42)
[2021-04-24] MEDS ORDERED: Aspirin Chewable 81 MG TAB ONE (21:42)
[2021-04-24] MEDS ORDERED: Oseltamivir 75 MG CAP PO SCH (21:45)
[2021-04-24] MEDS ORDERED: Acetaminophen 325 MG TAB PO PRN (23:45)
[2021-04-24] MEDS ORDERED: Ondansetron ODT 4 MG TAB SL PRN (23:45)
[2021-04-24] MEDS ORDERED: Ondansetron PF 4 MG/2 ML Vial IVP PRN (23:45)
[2021-04-25 00:06] VITALS: BMI 22.4
[2021-04-25] MEDS ORDERED: Acetaminophen 325 MG TAB PO PRN (00:32)
[2021-04-25] MEDS ORDERED: Ondansetron ODT 4 MG TAB PO PRN (00:32)
[2021-04-25] MEDS ORDERED: Sodium Chloride 0.9% 500 ML IV SCH (01:00)
[2021-04-25] MEDS ORDERED: Acetaminophen 500 MG TAB PO PRN (01:26)
[2021-04-25] MEDS ORDERED: Metoprolol Tartrate 5 MG/5 ML VIAL IVP SCH ×2 (01:30→13:00)
[2021-04-25 01:55] LABS: Troponin I Less than 0.010 ng/mL (< 0.028)
[2021-04-25 04:33] LABS: #Eosinphils 0.4 thou/uL (0.0-0.7); #Lymphocytes 2.1 thou/uL (1.20-3.40); #Monocytes 1.2 thou/uL (0.11-0.59); #Neutrophils 4.6 thou/uL (1.40-6.50); %Basophils 0.3 % (0.0-1.0); %Eosinophils 5.2 % (0.0-10.0); %Lymphocytes 25.3 % (21.0-51.0); %Monocytes 14.6 % (0.0-10.0); %Neutrophils 54.6 % (42.0-75.0); Hemoglobin 16.2 g/dL (14.0-18.0); Mean Corpuscular HGB CONC 32.5 g/dL (32.0-36.0); Mean Corpuscular Hemoglobin 31.2 pg (27.0-31.0); Mean Corpuscular Volume 96.1 fL (78.0-98.0); Mean Platelet Volume 7.1 fL (7.4-10.4); Platelet Count 208 thou/uL (130-400); RBC Distribution Width 12.8 % (11.5-14.5); Red Blood Cell (RBC) Count 5.19 mill/uL (4.70-6.10); White Blood Cell (WBC) Count 8.4 thou/uL (4.8-10.8)
[2021-04-25 04:54] LABS: Anion Gap 12 mmol/L (10-20); BUN (Urea Nitrogen) 15 mg/dL (8.4-25.7); Calc. Creatinine Clearance 87 mL/min (70-130); Carbon Dioxide 25 mmol/L (22-29); Chloride 105 mmol/L (98-107); Glucose 97 mg/dL (70-105); Magnesium 1.8 mg/dL (1.6-2.6); Potassium 3.9 mmol/L (3.5-5.1); Sodium 138 mmol/L (136-145)
[2021-04-25 04:56] LABS: ALT (SGPT) 55 U/L (8-55); AST (SGOT) 36 U/L (5-34); Albumin 3.4 g/dL (3.5-5.0); Alkaline Phosphatase 177 U/L (40-110); Bilirubin, Direct 0.3 mg/dL (0.1-0.3); Bilirubin, Total 0.8 mg/dL (0.2-1.2); Protein, Total 6.6 g/dL (6.0-8.3)
[2021-04-25] MEDS ORDERED: Carvedilol 3.125 MG TAB PO SCH (08:00)
[2021-04-25] MEDS: Digoxin 0.25 MG TAB PO SCH (08:06)
[2021-04-25] MEDS: Apixaban 5 MG TAB PO SCH ×2 (08:06→20:18)
[2021-04-25] MEDS: Aspirin 81 mg Enteric Coated Tablet PO SCH (08:06)
[2021-04-25] MEDS: Oseltamivir 75 MG CAP PO SCH ×2 (08:07→20:18)
[2021-04-25] MEDS ORDERED: Furosemide 20 MG TAB PO SCH (09:00)
[2021-04-25] MEDS ORDERED: Potassium Chloride 20 MEQ TAB PO SCH (09:00)
[2021-04-25] MEDS ORDERED: Carvedilol 6.25 MG TAB PO SCH (09:00)
[2021-04-25 10:05] LABS: Digoxin 1.17 ng/mL (0.8-2.0)
[2021-04-25] MEDS: Carvedilol 3.125 MG TAB PO SCH (16:29)
[2021-04-25] MEDS: cefTRIAXone\\ROCEPHIN 1 GM in Sodium Chloride 0.9% 100 ML IVPB SCH (20:18)
[2021-04-26 04:49] LABS: #Eosinphils 0.5 thou/uL (0.0-0.7); #Lymphocytes 2.2 thou/uL (1.20-3.40); #Monocytes 0.7 thou/uL (0.11-0.59); #Neutrophils 2.3 thou/uL (1.40-6.50); %Basophils 0.3 % (0.0-1.0); %Eosinophils 8.1 % (0.0-10.0); %Lymphocytes 38.2 % (21.0-51.0); %Monocytes 12.8 % (0.0-10.0); %Neutrophils 40.7 % (42.0-75.0); Hemoglobin 15.6 g/dL (14.0-18.0); Mean Corpuscular Hemoglobin 31.6 pg (27.0-31.0); Mean Corpuscular Volume 95.6 fL (78.0-98.0); Platelet Count 219 thou/uL (130-400); RBC Distribution Width 12.6 % (11.5-14.5); Red Blood Cell (RBC) Count 4.93 mill/uL (4.70-6.10); White Blood Cell (WBC) Count 5.7 thou/uL (4.8-10.8)
[2021-04-26 05:08] LABS: Anion Gap 10 mmol/L (10-20); BUN (Urea Nitrogen) 14 mg/dL (8.4-25.7); Calc. Creatinine Clearance 99 mL/min (70-130); Calcium 8.7 mg/dL (7.8-10.44); Carbon Dioxide 27 mmol/L (22-29); Chloride 105 mmol/L (98-107); Glucose 86 mg/dL (70-105); Magnesium 1.7 mg/dL (1.6-2.6); Potassium 3.8 mmol/L (3.5-5.1); Sodium 138 mmol/L (136-145)
[2021-04-26] MEDS ORDERED: Magnesium Oxide 400 MG TAB PO SCH (06:15)
[2021-04-26] MEDS ORDERED: Metoprolol Tartrate 5 MG/5 ML VIAL IVP SCH (06:15)
[2021-04-26] MEDS ORDERED: Potassium Chloride 20 MEQ TAB PO SCH (06:15)
[2021-04-26 08:02] LABS: Amphetamine Detected (NotDetected); Barbiturates Screen Not Detected (NotDetected); Benzodiazepine Screen Not Detected (NotDetected); Cocaine Metabolite Screen Not Detected (NotDetected); Methadone Not Detected (NotDetected); Methamphetamine Detected (NotDetected); Opiate Screen Not Detected (NotDetected); Oxycodone Screen Not Detected (NotDetected); Phencyclidine (PCP) Not Detected (NotDetected); THC/Cannabinoid Screen Not Detected (NotDetected); Tricyclic Screen Not Detected (NotDetected)
[2021-04-26] MEDS: Carvedilol 3.125 MG TAB PO SCH (08:21)
[2021-04-26] MEDS: Oseltamivir 75 MG CAP PO SCH ×2 (08:22→21:19)
[2021-04-26] MEDS: Aspirin 81 mg Enteric Coated Tablet PO SCH (08:22)
[2021-04-26] MEDS: Apixaban 5 MG TAB PO SCH ×2 (08:22→21:19)
[2021-04-26] MEDS: Digoxin 0.25 MG TAB PO SCH (08:22)
[2021-04-26] MEDS ORDERED: FLU VACC QS2021-22(6MOS UP)/PF 60 MCG/0.5 ML SYRINGE IM ONE (09:00)
[2021-04-26] MEDS: cefTRIAXone\\ROCEPHIN 1 GM in Sodium Chloride 0.9% 100 ML IVPB SCH (21:19)
[2021-04-26] MEDS ORDERED: Melatonin 3 MG TAB PO PRN (21:50)
[2021-04-27 04:41] LABS: #Eosinphils 0.3 thou/uL (0.0-0.7); #Lymphocytes 2.4 thou/uL (1.20-3.40); #Monocytes 0.8 thou/uL (0.11-0.59); #Neutrophils 3.1 thou/uL (1.40-6.50); %Basophils 0.5 % (0.0-1.0); %Eosinophils 4.7 % (0.0-10.0); %Lymphocytes 36.4 % (21.0-51.0); %Monocytes 11.6 % (0.0-10.0); %Neutrophils 46.8 % (42.0-75.0); Hemoglobin 15.5 g/dL (14.0-18.0); Mean Corpuscular HGB CONC 33.2 g/dL (32.0-36.0); Mean Corpuscular Hemoglobin 31.6 pg (27.0-31.0); Mean Corpuscular Volume 95.2 fL (78.0-98.0); Mean Platelet Volume 6.8 fL (7.4-10.4); Platelet Count 239 thou/uL (130-400); RBC Distribution Width 12.5 % (11.5-14.5); Red Blood Cell (RBC) Count 4.91 mill/uL (4.70-6.10); White Blood Cell (WBC) Count 6.6 thou/uL (4.8-10.8)
[2021-04-27 05:00] LABS: Anion Gap 11 mmol/L (10-20); BUN (Urea Nitrogen) 13 mg/dL (8.4-25.7); Calc. Creatinine Clearance 102 mL/min (70-130); Calcium 8.7 mg/dL (7.8-10.44); Carbon Dioxide 27 mmol/L (22-29); Chloride 105 mmol/L (98-107); Glucose 108 mg/dL (70-105); Magnesium 1.7 mg/dL (1.6-2.6); Potassium 4.1 mmol/L (3.5-5.1); Sodium 139 mmol/L (136-145)
[2021-04-27 08:52] VITALS: BP 126/73; TEMP 98
[2021-04-27] MEDS: Apixaban 5 MG TAB PO SCH (09:34)
[2021-04-27] MEDS: Digoxin 0.25 MG TAB PO SCH (09:35)
[2021-04-27] MEDS: Oseltamivir 75 MG CAP PO SCH (09:35)
[2021-04-27] MEDS: Aspirin 81 mg Enteric Coated Tablet PO SCH (09:35)
== END 2021-04-27 12:35 | disposition home or self-care (01) | DRG 194 ==
LOC: ERS 18:04 → 2SW 22:23 → OBSVTOIN 04-25 15:27
PROVIDERS: ADMIT Internal Medicine; ATTEND Internal Medicine
DX: J10.1 Influenza due to other identified influenza virus with other respiratory manifestations (principal); I50.22 Chronic systolic (congestive) heart failure; J44.0 Chronic obstructive pulmonary disease with (acute) lower respiratory infection; N39.0 Urinary tract infection, site not specified; I48.92 Unspecified atrial flutter; I42.9 Cardiomyopathy, unspecified; Z20.822 Contact with and (suspected) exposure to COVID-19; I11.0 Hypertensive heart disease with heart failure; I48.0 Paroxysmal atrial fibrillation; F15.10 Other stimulant abuse, uncomplicated; G40.909 Epilepsy, unspecified, not intractable, without status epilepticus; Z79.82 Long term (current) use of aspirin; Z79.01 Long term (current) use of anticoagulants; Z79.02 Long term (current) use of antithrombotics/antiplatelets; Z79.899 Other long term (current) drug therapy; Z95.2 Presence of prosthetic heart valve; Z91.19 Patient's noncompliance with other medical treatment and regimen
CPT/HCPCS: 36415; 71045; 80048; 80053; 80076; 80162; 80306; 81003; 81015; 83605; 83690; 83735; 83880; 84484; 85025; 87040; 87086; 93005; 93010; 96365; 96375; 96376; G0378; J0696; J3490; J7030

== ENCOUNTER 2022-03-15 23:24 | Emergency (ER) | payer SELFPAY ==
[2022-03-16 00:11] LABS: #Basophils 0.1 thou/uL (0.0-0.2); #Eosinphils 0.4 thou/uL (0.0-0.7); #Lymphocytes 2.4 thou/uL (1.20-3.40); #Monocytes 1.1 thou/uL (0.11-0.59); #Neutrophils 7.2 thou/uL (1.40-6.50); %Basophils 0.7 % (0.0-1.0); %Eosinophils 3.2 % (0.0-10.0); %Lymphocytes 21.2 % (21.0-51.0); %Monocytes 10.1 % (0.0-10.0); %Neutrophils 64.8 % (42.0-75.0); Hemoglobin 15.6 g/dL (14.0-18.0); Mean Corpuscular HGB CONC 33.6 g/dL (32.0-36.0); Mean Corpuscular Hemoglobin 31.5 pg (27.0-31.0); Mean Corpuscular Volume 93.8 fl (78.0-98.0); Mean Platelet Volume 6.8 fL (7.4-10.4); Platelet Count 325 10x3/uL (130-400); RBC Distribution Width 12.5 % (11.5-14.5); Red Blood Cell (RBC) Count 4.95 mill/uL (4.70-6.10); White Blood Cell (WBC) Count 11.1 10x3/uL (4.8-10.8)
[2022-03-16 00:35] LABS: ALT (SGPT) 196 U/L (8-55); AST (SGOT) 89 U/L (5-34); Albumin 3.9 g/dL (3.5-5.0); Alkaline Phosphatase 251 U/L (40-110); Anion Gap 15 mmol/L (10-20); BUN (Urea Nitrogen) 17 mg/dL (8.4-25.7); Bilirubin, Total 1.2 mg/dL (0.2-1.2); Calc. Creatinine Clearance 0 mL/min (70-130); Calcium 9.2 mg/dL (7.8-10.44); Carbon Dioxide 24 mmol/L (22-29); Chloride 105 mmol/L (98-107); Estimated GFR 89; Globulin 3.2 g/dL (2.4-3.5); Glucose 112 mg/dL (70-105); Potassium 4.7 mmol/L (3.5-5.1); Protein, Total 7.1 g/dL (6.0-8.3); Sodium 139 mmol/L (136-145)
[2022-03-16] MEDS ORDERED: predniSONE 20 MG TAB ONE (00:37)
[2022-03-16] MEDS ORDERED: Ipratropium/Albuterol 3 ML NEB ONE (00:37)
[2022-03-16 01:06] LABS: SARS-CoV-2 NAA Rapid Test Not Detected (NotDetected)
[2022-03-16 01:07] LABS: Digoxin Less than 0.15 ng/mL (0.8-2.0)
== END 2022-03-16 01:38 | disposition home or self-care (01) ==
LOC: ERS 23:24
DX: J44.1 Chronic obstructive pulmonary disease with (acute) exacerbation (principal); R53.1 Weakness; R94.5 Abnormal results of liver function studies; D72.829 Elevated white blood cell count, unspecified; F17.210 Nicotine dependence, cigarettes, uncomplicated
CPT/HCPCS: 36415; 71045; 80053; 80162; 84484; 85025; 93005; J7512; J7620; U0002

== ENCOUNTER 2022-04-17 10:04 | Inpatient (IN) | payer SELFPAY ==
[2022-04-17 11:46] LABS: #Basophils 0.1 thou/uL (0.0-0.2); #Eosinphils 0.3 thou/uL (0.0-0.7); #Lymphocytes 2.7 thou/uL (1.20-3.40); #Neutrophils 7.1 thou/uL (1.40-6.50); %Basophils 0.7 % (0.0-1.0); %Eosinophils 3.1 % (0.0-10.0); %Lymphocytes 23.9 % (21.0-51.0); %Monocytes 8.9 % (0.0-10.0); %Neutrophils 63.4 % (42.0-75.0); Hemoglobin 16.3 g/dL (14.0-18.0); Mean Corpuscular HGB CONC 32.5 g/dL (32.0-36.0); Mean Corpuscular Hemoglobin 30.7 pg (27.0-31.0); Mean Corpuscular Volume 94.4 fl (78.0-98.0); Mean Platelet Volume 7.2 fL (7.4-10.4); Platelet Count 285 10x3/uL (130-400); RBC Distribution Width 13.2 % (11.5-14.5); Red Blood Cell (RBC) Count 5.29 mill/uL (4.70-6.10); White Blood Cell (WBC) Count 11.2 10x3/uL (4.8-10.8)
[2022-04-17 12:16] LABS: ALT (SGPT) 54 U/L (8-55); AST (SGOT) 32 U/L (5-34); Albumin 4.1 g/dL (3.5-5.0); Alkaline Phosphatase 123 U/L (40-110); Anion Gap 13 mmol/L (10-20); BUN (Urea Nitrogen) 16 mg/dL (8.4-25.7); Bilirubin, Total 1.2 mg/dL (0.2-1.2); Calc. Creatinine Clearance 0 mL/min (70-130); Calcium 9.6 mg/dL (7.8-10.44); Carbon Dioxide 29 mmol/L (22-29); Chloride 103 mmol/L (98-107); Estimated GFR 87; Globulin 3.3 g/dL (2.4-3.5); Glucose 74 mg/dL (70-105); Protein, Total 7.4 g/dL (6.0-8.3); Sodium 141 mmol/L (136-145)
[2022-04-17 12:50] LABS: INR-International Normal Ratio 0.9; PTT 24.9 sec (22.9-36.1); Prothrombin Time 12.3 sec (12.0-14.7)
[2022-04-17 13:09] LABS: Acetaminophen Less than 10.0 mcg/mL (10.0-30.0); Alcohol Less than 10 mg/dL (Less than 10); Salicylate Less than 8.0 mg/dL (15.0-30.0)
[2022-04-17 13:23] LABS: Amphetamine Detected (NotDetected); Barbiturates Screen Not Detected (NotDetected); Benzodiazepine Screen Not Detected (NotDetected); Cocaine Metabolite Screen Not Detected (NotDetected); Methadone Not Detected (NotDetected); Methamphetamine Detected (NotDetected); Opiate Screen Not Detected (NotDetected); Oxycodone Screen Not Detected (NotDetected); Phencyclidine (PCP) Not Detected (NotDetected); THC/Cannabinoid Screen Not Detected (NotDetected); Tricyclic Screen Not Detected (NotDetected)
[2022-04-17] MEDS ORDERED: Ondansetron PF 4 MG/2 ML Vial ONE (13:26)
[2022-04-17] MEDS ORDERED: Morphine 4 MG/ML VIAL ONE (13:26)
[2022-04-17 13:27] LABS: Bacteria/HPF None Seen HPF (None Seen); Bilirubin Negative (Negative); Blood, Urine Negative (Negative); Clarity Clear (Clear); Glucose, Urine (Dipstick) 50 mg/dL (Negative); Ketone, Urine Negative (Negative); Leukocyte 25 Leu/uL (Negative); Nitrite Negative (Negative); Protein, Urine (Dipstick) Negative (Neg-Trace); RBC/HPF 0-3 HPF (0-3); Specific Gravity, Urine 1.022 (1.002-1.036); Squamous Epithelial None Seen HPF (0-3); Urobilinogen Normal mg/dL (Less than 2); WBC/HPF 0-3 HPF (0-3)
[2022-04-17] MEDS ORDERED: HYDROcodone/Acetaminophen 5/325 mg Tablet PO PRN (14:28)
[2022-04-17] MEDS ORDERED: Ondansetron PF 4 MG/2 ML Vial IVP PRN (14:28)
[2022-04-17] MEDS ORDERED: Acetaminophen 325 MG TAB PO PRN (14:28)
[2022-04-17] MEDS ORDERED: Calcium Carbonate 500 MG ChewTAB PO PRN (14:28)
[2022-04-17] MEDS ORDERED: Senokot S 8.6-50 MG TAB PO PRN (14:28)
[2022-04-17] MEDS ORDERED: Ipratropium/Albuterol 3 ML NEB NEB SCH (15:00)
[2022-04-17 16:01] VITALS: BMI 23.2
[2022-04-17 16:25] LABS: Troponin I Less than 0.010 ng/mL (< 0.028)
[2022-04-17 18:53] LABS: Troponin I 0.013 ng/mL (< 0.028)
[2022-04-17] MEDS: Atorvastatin Calcium 40 MG TAB PO SCH (20:14)
[2022-04-18 05:22] LABS: #Basophils 0.1 thou/uL (0.0-0.2); #Eosinphils 0.5 thou/uL (0.0-0.7); #Lymphocytes 2.3 thou/uL (1.20-3.40); #Monocytes 1.1 thou/uL (0.11-0.59); #Neutrophils 6.9 thou/uL (1.40-6.50); %Basophils 0.6 % (0.0-1.0); %Eosinophils 4.5 % (0.0-10.0); %Lymphocytes 21.4 % (21.0-51.0); %Neutrophils 63.5 % (42.0-75.0); Mean Corpuscular HGB CONC 32.9 g/dL (32.0-36.0); Mean Corpuscular Hemoglobin 31.4 pg (27.0-31.0); Mean Corpuscular Volume 95.6 fl (78.0-98.0); Mean Platelet Volume 7.1 fL (7.4-10.4); Platelet Count 233 10x3/uL (130-400); RBC Distribution Width 13.2 % (11.5-14.5); Red Blood Cell (RBC) Count 4.78 mill/uL (4.70-6.10); White Blood Cell (WBC) Count 10.9 10x3/uL (4.8-10.8)
[2022-04-18 05:48] LABS: Anion Gap 14 mmol/L (10-20); BUN (Urea Nitrogen) 14 mg/dL (8.4-25.7); Calc. Creatinine Clearance 82 mL/min (70-130); Calcium 8.9 mg/dL (7.8-10.44); Carbon Dioxide 26 mmol/L (22-29); Cardiac Risk 3.3 (Less than 4.5); Chloride 104 mmol/L (98-107); Cholesterol 198 mg/dl (< 200 Desired); Estimated GFR 86; Glucose 99 mg/dL (70-105); HDL Cholesterol 60 mg/dL (>60 Neg Risk); LDL Cholesterol, Calculated 108 mg/dL; Potassium 3.9 mmol/L (3.5-5.1); Sodium 140 mmol/L (136-145); Triglycerides 150 mg/dL (Less than 150)
[2022-04-18] MEDS: Clopidogrel Bisulfate 75 MG TAB PO SCH (09:33)
[2022-04-18] MEDS: Aspirin 81 mg Enteric Coated Tablet PO SCH (09:34)
[2022-04-18] MEDS: Nicotine 21 MG PATCH TD SCH (09:34)
[2022-04-18] MEDS ORDERED: Melatonin 3 MG TAB PO PRN (19:53)
[2022-04-18] MEDS: Atorvastatin Calcium 40 MG TAB PO SCH (20:36)
[2022-04-19] MEDS: Aspirin 81 mg Enteric Coated Tablet PO SCH (09:25)
[2022-04-19] MEDS: Nicotine 21 MG PATCH TD SCH (09:25)
[2022-04-19] MEDS: Clopidogrel Bisulfate 75 MG TAB PO SCH (09:25)
[2022-04-19] MEDS: Atorvastatin Calcium 40 MG TAB PO SCH (21:16)
[2022-04-20 05:38] LABS: #Basophils 0.1 thou/uL (0.0-0.2); #Eosinphils 0.5 thou/uL (0.0-0.7); #Lymphocytes 2.4 thou/uL (1.20-3.40); #Neutrophils 6.7 thou/uL (1.40-6.50); %Basophils 0.5 % (0.0-1.0); %Eosinophils 4.4 % (0.0-10.0); %Lymphocytes 22.6 % (21.0-51.0); %Monocytes 9.6 % (0.0-10.0); %Neutrophils 62.8 % (42.0-75.0); Hemoglobin 16.8 g/dL (14.0-18.0); Mean Corpuscular HGB CONC 32.5 g/dL (32.0-36.0); Mean Corpuscular Hemoglobin 30.6 pg (27.0-31.0); Mean Corpuscular Volume 94.4 fl (78.0-98.0); Platelet Count 257 10x3/uL (130-400); RBC Distribution Width 13.1 % (11.5-14.5); Red Blood Cell (RBC) Count 5.47 mill/uL (4.70-6.10); White Blood Cell (WBC) Count 10.6 10x3/uL (4.8-10.8)
[2022-04-20 05:43] LABS: Anion Gap 11 mmol/L (10-20); BUN (Urea Nitrogen) 17 mg/dL (8.4-25.7); Calc. Creatinine Clearance 77 mL/min (70-130); Calcium 9.6 mg/dL (7.8-10.44); Carbon Dioxide 31 mmol/L (22-29); Chloride 101 mmol/L (98-107); Estimated GFR 80; Glucose 94 mg/dL (70-105); Potassium 4.9 mmol/L (3.5-5.1); Sodium 138 mmol/L (136-145)
[2022-04-20] MEDS ORDERED: Iopamidol 370 76% 100 ML VIAL ONE (08:41)
[2022-04-20] MEDS: Aspirin 81 mg Enteric Coated Tablet PO SCH (09:17)
[2022-04-20] MEDS: Clopidogrel Bisulfate 75 MG TAB PO SCH (09:17)
[2022-04-20] MEDS: Nicotine 21 MG PATCH TD SCH (09:17)
[2022-04-20 16:20] VITALS: BP 83/52; TEMP 98.1
[2022-04-20] MEDS ORDERED: FLU VACC QS2022-23(6MOS UP)/PF 60 MCG/0.5 ML SYRINGE IM ONE (16:45)
== END 2022-04-20 17:47 | disposition home or self-care (01) | DRG 149 ==
LOC: ERS 10:04 → 2NO 15:28 → OBSVTOIN 04-18 17:08
PROVIDERS: ADMIT Family Medicine; ATTEND Hospitalist
DX: R42 Dizziness and giddiness (principal); I50.22 Chronic systolic (congestive) heart failure; F15.10 Other stimulant abuse, uncomplicated; G40.909 Epilepsy, unspecified, not intractable, without status epilepticus; J44.9 Chronic obstructive pulmonary disease, unspecified; I25.10 Atherosclerotic heart disease of native coronary artery without angina pectoris; F17.210 Nicotine dependence, cigarettes, uncomplicated; F32.A Depression, unspecified; I73.9 Peripheral vascular disease, unspecified; I48.0 Paroxysmal atrial fibrillation; E78.5 Hyperlipidemia, unspecified; I11.0 Hypertensive heart disease with heart failure; Z79.899 Other long term (current) drug therapy; Z95.2 Presence of prosthetic heart valve; Z95.1 Presence of aortocoronary bypass graft; Z79.82 Long term (current) use of aspirin; Z71.6 Tobacco abuse counseling; Z20.822 Contact with and (suspected) exposure to COVID-19; Z71.51 Drug abuse counseling and surveillance of drug abuser
CPT/HCPCS: 36415; 70450; 70551; 71045; 75635; 80048; 80053; 80061; 80306; 80307; 81003; 81015; 83605; 83735; 83880; 84443; 84484; 85025; 85610; 85730; 93005; 93306; 93880; 93923; 94640; 95706; 95819; 95957; 96372; 96374; 96375; G0378; J1650; J2270; J2405; J7620; Q9967; U0003; U0005

== ENCOUNTER 2022-05-01 00:25 | Inpatient (IN) | payer SELFPAY ==
[2022-05-01 01:46] LABS: #Eosinphils 0.8 thou/uL (0.0-0.7); #Lymphocytes 1.4 thou/uL (1.20-3.40); #Neutrophils 5.9 thou/uL (1.40-6.50); %Basophils 0.3 % (0.0-1.0); %Eosinophils 8.3 % (0.0-10.0); %Lymphocytes 15.3 % (21.0-51.0); %Monocytes 11.4 % (0.0-10.0); %Neutrophils 64.7 % (42.0-75.0); Hemoglobin 14.1 g/dL (14.0-18.0); Mean Corpuscular HGB CONC 33.8 g/dL (32.0-36.0); Mean Corpuscular Volume 94.7 fl (78.0-98.0); Platelet Count 261 10x3/uL (130-400); RBC Distribution Width 13.3 % (11.5-14.5); White Blood Cell (WBC) Count 9.1 10x3/uL (4.8-10.8)
[2022-05-01 02:04] LABS: ALT (SGPT) 75 U/L (8-55); AST (SGOT) 52 U/L (5-34); Albumin 3.9 g/dL (3.5-5.0); Alkaline Phosphatase 140 U/L (40-110); Anion Gap 15 mmol/L (10-20); BUN (Urea Nitrogen) 13 mg/dL (8.4-25.7); Bilirubin, Total 1.1 mg/dL (0.2-1.2); Calc. Creatinine Clearance 0 mL/min (70-130); Calcium 9.2 mg/dL (7.8-10.44); Carbon Dioxide 23 mmol/L (22-29); Chloride 105 mmol/L (98-107); Estimated GFR 102; Globulin 3.1 g/dL (2.4-3.5); Glucose 103 mg/dL (70-105); Sodium 139 mmol/L (136-145)
[2022-05-01] MEDS ORDERED: Ipratropium/Albuterol 3 ML NEB ONE ×4 (02:29→04:43)
[2022-05-01] MEDS ORDERED: Albuterol 2.5 MG/0.5 ML NEB ONE (02:29)
[2022-05-01] MEDS ORDERED: predniSONE 20 MG TAB ONE (04:01)
[2022-05-01] MEDS ORDERED: Magnesium 2 GM/50 ML BAG (IN WATER) ONE (05:38)
[2022-05-01] MEDS ORDERED: Ondansetron PF 4 MG/2 ML Vial IVP PRN (08:12)
[2022-05-01] MEDS ORDERED: Ondansetron ODT 4 MG TAB PO PRN (08:12)
[2022-05-01] MEDS ORDERED: Acetaminophen 650 MG Suppository PR PRN (08:12)
[2022-05-01] MEDS ORDERED: predniSONE 20 MG TAB PO SCH (09:00)
[2022-05-01] MEDS ORDERED: Digoxin 0.25 MG TAB PO SCH (09:00)
[2022-05-01] MEDS: Aspirin 81 mg Enteric Coated Tablet PO SCH (10:29)
[2022-05-01] MEDS: Clopidogrel Bisulfate 75 MG TAB PO SCH (10:30)
[2022-05-01] MEDS: Azithromycin 500 MG in Sodium Chloride 0.9% 250 ML 250 ML IVPB SCH (10:30)
[2022-05-01] MEDS ORDERED: FLU VACC QS2022-23(6MOS UP)/PF 60 MCG/0.5 ML SYRINGE IM ONE (11:30)
[2022-05-01 12:05] LABS: SARS-CoV-2 NAA Rapid Test Not Detected (NotDetected)
[2022-05-01 12:33] VITALS: BMI 24.0
[2022-05-01 13:14] LABS: Amphetamine Detected (NotDetected); Barbiturates Screen Not Detected (NotDetected); Benzodiazepine Screen Not Detected (NotDetected); Cocaine Metabolite Screen Not Detected (NotDetected); Methadone Not Detected (NotDetected); Methamphetamine Detected (NotDetected); Opiate Screen Not Detected (NotDetected); Oxycodone Screen Not Detected (NotDetected); Phencyclidine (PCP) Not Detected (NotDetected); THC/Cannabinoid Screen Not Detected (NotDetected); Tricyclic Screen Not Detected (NotDetected)
[2022-05-01] MEDS: Ipratropium/Albuterol 3 ML NEB NEB SCH ×2 (14:05→18:09)
[2022-05-01] MEDS: Mometasone/Formoterol 200/5 60 PUFF INH SCH (18:21)
[2022-05-01] MEDS: Atorvastatin Calcium 40 MG TAB PO SCH (20:14)
[2022-05-01] MEDS: guaiFENesin ER 600 MG TAB PO SCH (20:14)
[2022-05-01] MEDS: Melatonin 3 MG TAB PO PRN (22:34)
[2022-05-02] MEDS: Ipratropium/Albuterol 3 ML NEB NEB SCH ×6 (00:53→23:09)
[2022-05-02] MEDS ORDERED: ALPRAZolam 0.5 MG TAB PO SCH (03:15)
[2022-05-02] MEDS ORDERED: Lidocaine 2% Viscous Solution 10 ML, Aluminum & Magnesium Hydroxide 30 ML SSW SCH (03:15)
[2022-05-02] MEDS ORDERED: methylPREDNISolone Sod Succ 40 MG VIAL IVP SCH (03:30)
[2022-05-02 03:38] LABS: #Lymphocytes 1.4 thou/uL (1.20-3.40); #Monocytes 1.3 thou/uL (0.11-0.59); #Neutrophils 16.2 thou/uL (1.40-6.50); %Basophils 0.1 % (0.0-1.0); %Eosinophils 0.1 % (0.0-10.0); %Lymphocytes 7.5 % (21.0-51.0); %Monocytes 6.9 % (0.0-10.0); %Neutrophils 85.5 % (42.0-75.0); Hemoglobin 15.3 g/dL (14.0-18.0); Mean Corpuscular HGB CONC 32.6 g/dL (32.0-36.0); Mean Corpuscular Hemoglobin 31.1 pg (27.0-31.0); Mean Corpuscular Volume 95.4 fl (78.0-98.0); Mean Platelet Volume 6.7 fL (7.4-10.4); Platelet Count 302 10x3/uL (130-400); RBC Distribution Width 13.2 % (11.5-14.5); Red Blood Cell (RBC) Count 4.93 mill/uL (4.70-6.10); White Blood Cell (WBC) Count 18.9 10x3/uL (4.8-10.8)
[2022-05-02 03:54] LABS: Lactic Acid 2.3 mmol/L (0.5-2.2)
[2022-05-02 03:59] LABS: Anion Gap 15 mmol/L (10-20); BUN (Urea Nitrogen) 15 mg/dL (8.4-25.7); CK (CPK) 601 U/L (30-200); Calc. Creatinine Clearance 105 mL/min (70-130); Calcium 9.2 mg/dL (7.8-10.44); Carbon Dioxide 28 mmol/L (22-29); Chloride 100 mmol/L (98-107); Estimated GFR 100; Glucose 92 mg/dL (70-105); Magnesium 1.8 mg/dL (1.6-2.6); Potassium 4.3 mmol/L (3.5-5.1); Sodium 139 mmol/L (136-145)
[2022-05-02] MEDS: Acetaminophen 325 MG TAB PO PRN ×2 (05:21→18:24)
[2022-05-02] MEDS ORDERED: Magnesium 2 GM/50 ML(in water) 2 GM in Premix Bag 1 BAG IVPB SCH ×2 (06:00→08:00)
[2022-05-02] MEDS: methylPREDNISolone Sod Succ 40 MG VIAL IVP SCH ×3 (06:20→18:24)
[2022-05-02] MEDS: Mometasone/Formoterol 200/5 60 PUFF INH SCH ×2 (06:59→20:02)
[2022-05-02] MEDS ORDERED: cefTRIAXone\\ROCEPHIN 1 GM in Sodium Chloride 0.9% 100 ML IVPB SCH (08:00)
[2022-05-02] MEDS ORDERED: Ipratropium/Albuterol 3 ML NEB NEB SCH (08:00)
[2022-05-02] MEDS ORDERED: Labetalol HCl 100 MG/20 ML VIAL SLOW IVP SCH (08:00)
[2022-05-02 08:09] LABS: Actual Bicarbonate (HCO3a) 29.1 mEq/L (22-28); Base Excess (BEa) 1.2 mEq/L (-2.0 to +3.0); CO2 Tension 59.2 mmHg (35.0-45.0); Calcium, Ionized (arterial) 1.19 mmol/L (1.12-1.30); Carboxyhemoglobin (COHb) 1.1 gm% (0.0-3.0); Hemoglobin (Hb) 15.8 g/dL (14.0-18.0); Potassium - ABG Lab 4.12 mmol/L (3.70-5.30); pH, Arterial 7.31 (7.35-7.45)
[2022-05-02 08:10] LABS: O2 Tension (PaO2), arterial 59.9 mmHg (80.0-100.0); Puncture Site RRA
[2022-05-02] MEDS: Clopidogrel Bisulfate 75 MG TAB PO SCH (08:38)
[2022-05-02] MEDS: guaiFENesin ER 600 MG TAB PO SCH ×2 (08:38→21:11)
[2022-05-02] MEDS: Digoxin 0.125 MG TAB PO SCH (08:40)
[2022-05-02] MEDS: Aspirin 81 mg Enteric Coated Tablet PO SCH (08:40)
[2022-05-02] MEDS: cefTRIAXone\\ROCEPHIN 1 GM in Sodium Chloride 0.9% 100 ML IVPB SCH (08:46)
[2022-05-02] MEDS ORDERED: cloNIDine 0.1mg/24 Hour PATCH TD SCH (09:00)
[2022-05-02] MEDS ORDERED: Labetalol HCl 100 MG/20 ML VIAL SLOW IVP PRN (10:30)
[2022-05-02] MEDS ORDERED: hydrALAZINE 20 MG/ML VIAL SLOW IVP PRN (10:30)
[2022-05-02] MEDS: Azithromycin 500 MG in Sodium Chloride 0.9% 250 ML 250 ML IVPB SCH (10:41)
[2022-05-02] MEDS: Lactated Ringer's 1,000 ML IV SCH ×2 (10:46→21:11)
[2022-05-02 13:27] LABS: Actual Bicarbonate (HCO3v) 28 mEq/L (22-28); Base Excess 2.8 mEq/L (-2.0 to +3.0); Chloride (VBG) 102 mmol/L (98-106); Potassium (VBG) 4.77 mmol/L (3.70-5.30); Sodium 138.6 mmol/L (133-146)
[2022-05-02] MEDS: Atorvastatin Calcium 40 MG TAB PO SCH (21:12)
[2022-05-03] MEDS: Diltiazem 125 MG in Sodium Chloride 0.9% 100 ML IVPB SCH ×2 (00:45→21:13)
[2022-05-03] MEDS: methylPREDNISolone Sod Succ 40 MG VIAL IVP SCH ×3 (00:51→11:46)
[2022-05-03] MEDS: Ipratropium/Albuterol 3 ML NEB NEB SCH ×6 (02:39→22:09)
[2022-05-03] MEDS: Lactated Ringer's 1,000 ML IV SCH ×3 (07:40→21:12)
[2022-05-03] MEDS ORDERED: Pantoprazole 40 MG VIAL IVP SCH (09:00)
[2022-05-03 09:21] LABS: #Lymphocytes 1.3 thou/uL (1.20-3.40); #Monocytes 0.6 thou/uL (0.11-0.59); #Neutrophils 16.1 thou/uL (1.40-6.50); %Eosinophils 0.1 % (0.0-10.0); %Monocytes 3.6 % (0.0-10.0); %Neutrophils 89.2 % (42.0-75.0); Hemoglobin 14.3 g/dL (14.0-18.0); Mean Corpuscular HGB CONC 32.2 g/dL (32.0-36.0); Mean Corpuscular Hemoglobin 31.1 pg (27.0-31.0); Mean Corpuscular Volume 96.9 fl (78.0-98.0); Mean Platelet Volume 6.8 fL (7.4-10.4); Platelet Count 285 10x3/uL (130-400); RBC Distribution Width 13.2 % (11.5-14.5); Red Blood Cell (RBC) Count 4.59 mill/uL (4.70-6.10)
[2022-05-03 09:41] LABS: Anion Gap 10 mmol/L (10-20); BUN (Urea Nitrogen) 17 mg/dL (8.4-25.7); CK (CPK) 177 U/L (30-200); Calc. Creatinine Clearance 123 mL/min (70-130); Calcium 8.7 mg/dL (7.8-10.44); Carbon Dioxide 30 mmol/L (22-29); Chloride 104 mmol/L (98-107); Estimated GFR 106; Glucose 133 mg/dL (70-105); Magnesium 1.9 mg/dL (1.6-2.6); Phosphorus 2.9 mg/dL (2.3-4.7); Potassium 4.6 mmol/L (3.5-5.1); Sodium 139 mmol/L (136-145)
[2022-05-03] MEDS: Mometasone/Formoterol 200/5 60 PUFF INH SCH ×2 (10:49→18:21)
[2022-05-03] MEDS: cefTRIAXone\\ROCEPHIN 1 GM in Sodium Chloride 0.9% 100 ML IVPB SCH (10:50)
[2022-05-03] MEDS: Digoxin 0.125 MG TAB PO SCH (10:51)
[2022-05-03] MEDS: Aspirin 81 mg Enteric Coated Tablet PO SCH (10:51)
[2022-05-03] MEDS: Clopidogrel Bisulfate 75 MG TAB PO SCH (10:51)
[2022-05-03] MEDS: guaiFENesin ER 600 MG TAB PO SCH ×2 (10:52→20:12)
[2022-05-03] MEDS: Azithromycin 500 MG in Sodium Chloride 0.9% 250 ML 250 ML IVPB SCH (11:43)
[2022-05-03] MEDS: Atorvastatin Calcium 40 MG TAB PO SCH (20:12)
[2022-05-03] MEDS: Cefdinir 300 MG CAP PO SCH (20:12)
[2022-05-03] MEDS: Melatonin 3 MG TAB PO PRN (20:15)
[2022-05-04] MEDS: Ipratropium/Albuterol 3 ML NEB NEB SCH ×4 (02:28→14:54)
[2022-05-04 04:32] LABS: Band 17 % (5-11); Hemoglobin 13.7 g/dL (14.0-18.0); Hypochromia SLIGHT = 6-15 cells (100X) (0-5/hpf); Lymphocytes 13 % (21-51); MDiff Complete? YES; Mean Corpuscular HGB CONC 31.6 g/dL (32.0-36.0); Mean Corpuscular Hemoglobin 30.7 pg (27.0-31.0); Mean Corpuscular Volume 97.2 fl (78.0-98.0); Monocytes 4 % (0-10); Neutrophil 61 % (42-75); Platelet Count 285 10x3/uL (130-400); Platelet Morphology Comment Appears Adequate; Polychromasia SLIGHT = 2-3 cells (100X) (0-2/hpf); RBC Distribution Width 13.3 % (11.5-14.5); Reactive Lymphocytes 5 % (0-10); Red Blood Cell (RBC) Count 4.48 mill/uL (4.70-6.10); White Blood Cell (WBC) Count 21.2 10x3/uL (4.8-10.8)
[2022-05-04 04:34] LABS: Anion Gap 11 mmol/L (10-20); BUN (Urea Nitrogen) 19 mg/dL (8.4-25.7); Calc. Creatinine Clearance 116 mL/min (70-130); Calcium 8.5 mg/dL (7.8-10.44); Carbon Dioxide 30 mmol/L (22-29); Chloride 102 mmol/L (98-107); Estimated GFR 104; Glucose 142 mg/dL (70-105); Potassium 4.3 mmol/L (3.5-5.1); Sodium 139 mmol/L (136-145)
[2022-05-04] MEDS: Mometasone/Formoterol 200/5 60 PUFF INH SCH (07:07)
[2022-05-04] MEDS: Aspirin 81 mg Enteric Coated Tablet PO SCH (08:20)
[2022-05-04] MEDS: predniSONE 20 MG TAB PO SCH (08:20)
[2022-05-04] MEDS: guaiFENesin ER 600 MG TAB PO SCH ×2 (08:20→21:41)
[2022-05-04] MEDS: Cefdinir 300 MG CAP PO SCH ×2 (08:20→21:41)
[2022-05-04] MEDS: Clopidogrel Bisulfate 75 MG TAB PO SCH (08:20)
[2022-05-04] MEDS: Digoxin 0.125 MG TAB PO SCH (08:20)
[2022-05-04] MEDS ORDERED: Flecainide 50 MG TAB PO SCH (13:00)
[2022-05-04] MEDS: Atorvastatin Calcium 40 MG TAB PO SCH (21:41)
[2022-05-04] MEDS: Lactated Ringer's 1,000 ML IV SCH (21:41)
[2022-05-04] MEDS: Melatonin 3 MG TAB PO PRN (21:42)
[2022-05-05] MEDS: Ipratropium/Albuterol 3 ML NEB NEB SCH ×8 (00:23→22:35)
[2022-05-05] MEDS: Mometasone/Formoterol 200/5 60 PUFF INH SCH ×3 (00:23→19:45)
[2022-05-05] MEDS: Diltiazem HCl 125 MG, Admixture Fee 1 EACH in Sodium Chloride 0.9% 100 ML IVPB SCH (00:59)
[2022-05-05 04:49] LABS: #Basophils 0.1 thou/uL (0.0-0.2); #Eosinphils 0.1 thou/uL (0.0-0.7); #Lymphocytes 3.3 thou/uL (1.20-3.40); #Monocytes 1.9 thou/uL (0.11-0.59); #Neutrophils 10.4 thou/uL (1.40-6.50); %Basophils 0.3 % (0.0-1.0); %Eosinophils 0.7 % (0.0-10.0); %Monocytes 11.8 % (0.0-10.0); %Neutrophils 66.2 % (42.0-75.0); Hemoglobin 13.9 g/dL (14.0-18.0); Mean Corpuscular HGB CONC 32.5 g/dL (32.0-36.0); Mean Corpuscular Hemoglobin 31.3 pg (27.0-31.0); Mean Corpuscular Volume 96.5 fl (78.0-98.0); Mean Platelet Volume 6.8 fL (7.4-10.4); Platelet Count 302 10x3/uL (130-400); RBC Distribution Width 13.1 % (11.5-14.5); Red Blood Cell (RBC) Count 4.45 mill/uL (4.70-6.10); White Blood Cell (WBC) Count 15.8 10x3/uL (4.8-10.8)
[2022-05-05 05:14] LABS: Anion Gap 13 mmol/L (10-20); BUN (Urea Nitrogen) 18 mg/dL (8.4-25.7); Calc. Creatinine Clearance 117 mL/min (70-130); Calcium 8.4 mg/dL (7.8-10.44); Carbon Dioxide 30 mmol/L (22-29); Chloride 103 mmol/L (98-107); Estimated GFR 103; Glucose 80 mg/dL (70-105); Potassium 3.9 mmol/L (3.5-5.1); Sodium 142 mmol/L (136-145)
[2022-05-05] MEDS: predniSONE 20 MG TAB PO SCH (07:38)
[2022-05-05] MEDS: Acetaminophen 325 MG TAB PO PRN (07:38)
[2022-05-05] MEDS: Cefdinir 300 MG CAP PO SCH ×2 (07:38→22:15)
[2022-05-05] MEDS: Aspirin 81 mg Enteric Coated Tablet PO SCH (07:38)
[2022-05-05] MEDS: Digoxin 0.125 MG TAB PO SCH (07:38)
[2022-05-05] MEDS: Clopidogrel Bisulfate 75 MG TAB PO SCH (07:39)
[2022-05-05] MEDS: guaiFENesin ER 600 MG TAB PO SCH ×2 (07:40→22:16)
[2022-05-05] MEDS: Atorvastatin Calcium 40 MG TAB PO SCH (22:15)
[2022-05-05] MEDS: Melatonin 3 MG TAB PO PRN (22:18)
[2022-05-06] MEDS: Lactated Ringer's 1,000 ML IV SCH (01:15)
[2022-05-06] MEDS: Diltiazem HCl 125 MG, Admixture Fee 1 EACH in Sodium Chloride 0.9% 100 ML IVPB SCH (01:57)
[2022-05-06] MEDS: Ipratropium/Albuterol 3 ML NEB NEB SCH ×6 (03:10→22:56)
[2022-05-06] MEDS ORDERED: Diltiazem HCl 125 MG, Admixture Fee 1 EACH in Sodium Chloride 0.9% 100 ML IVPB SCH (07:14)
[2022-05-06] MEDS: Mometasone/Formoterol 200/5 60 PUFF INH SCH ×2 (07:59→19:15)
[2022-05-06] MEDS: Digoxin 0.125 MG TAB PO SCH (08:45)
[2022-05-06] MEDS: predniSONE 20 MG TAB PO SCH (08:45)
[2022-05-06] MEDS: guaiFENesin ER 600 MG TAB PO SCH ×2 (08:45→21:14)
[2022-05-06] MEDS: Aspirin 81 mg Enteric Coated Tablet PO SCH (08:45)
[2022-05-06] MEDS: Clopidogrel Bisulfate 75 MG TAB PO SCH (08:45)
[2022-05-06] MEDS: Cefdinir 300 MG CAP PO SCH ×2 (08:45→21:14)
[2022-05-06] MEDS: Melatonin 3 MG TAB PO PRN (21:15)
[2022-05-06] MEDS: Atorvastatin Calcium 40 MG TAB PO SCH (21:15)
[2022-05-07] MEDS: Ipratropium/Albuterol 3 ML NEB NEB SCH ×6 (02:06→23:11)
[2022-05-07] MEDS: Lactated Ringer's 1,000 ML IV SCH (04:19)
[2022-05-07] MEDS: Mometasone/Formoterol 200/5 60 PUFF INH SCH ×2 (07:39→19:08)
[2022-05-07] MEDS: guaiFENesin ER 600 MG TAB PO SCH ×2 (08:40→20:33)
[2022-05-07] MEDS: Aspirin 81 mg Enteric Coated Tablet PO SCH (08:41)
[2022-05-07] MEDS: Digoxin 0.125 MG TAB PO SCH (08:41)
[2022-05-07] MEDS: Cefdinir 300 MG CAP PO SCH ×2 (08:41→20:33)
[2022-05-07] MEDS: predniSONE 20 MG TAB PO SCH (08:41)
[2022-05-07] MEDS: Flecainide 50 MG TAB PO SCH ×2 (08:41→20:33)
[2022-05-07] MEDS: Clopidogrel Bisulfate 75 MG TAB PO SCH (08:41)
[2022-05-07] MEDS: Atorvastatin Calcium 40 MG TAB PO SCH (20:33)
[2022-05-07] MEDS: Melatonin 3 MG TAB PO PRN (20:33)
[2022-05-08] MEDS: Ipratropium/Albuterol 3 ML NEB NEB SCH ×3 (03:08→11:26)
[2022-05-08] MEDS: Mometasone/Formoterol 200/5 60 PUFF INH SCH (07:07)
[2022-05-08 08:38] VITALS: TEMP 97.5
[2022-05-08] MEDS: predniSONE 20 MG TAB PO SCH (08:44)
[2022-05-08] MEDS: Clopidogrel Bisulfate 75 MG TAB PO SCH (08:44)
[2022-05-08] MEDS: guaiFENesin ER 600 MG TAB PO SCH (08:44)
[2022-05-08] MEDS: Digoxin 0.125 MG TAB PO SCH (08:44)
[2022-05-08] MEDS: Aspirin 81 mg Enteric Coated Tablet PO SCH (08:44)
[2022-05-08] MEDS: Cefdinir 300 MG CAP PO SCH (08:45)
[2022-05-08] MEDS: Flecainide 50 MG TAB PO SCH (08:46)
[2022-05-08 12:17] VITALS: BP 131/77
== END 2022-05-08 12:20 | disposition home or self-care (01) | DRG 189 ==
LOC: ERS 00:25 → 2SW 07:54 → CCU 05-02 09:14 → OBSVTOIN 05-02 11:18 → IMCU/EMU 05-02 18:15 → 2NO 05-04 18:19
PROVIDERS: ADMIT Student in an Organized Health Care Education/Training Program; ATTEND Internal Medicine
PROC: 5A09457 Assistance with Respiratory Ventilation, 24-96 Consecutive Hours, Continuous Positive Airway Pressure (ICD-10-PCS; principal; 2022-05-02)
PROC: 4A133R1 Monitoring of Arterial Saturation, Peripheral, Percutaneous Approach (ICD-10-PCS; 2022-05-02)
DX: J96.01 Acute respiratory failure with hypoxia (principal); E87.29 Other acidosis; J44.1 Chronic obstructive pulmonary disease with (acute) exacerbation; J96.02 Acute respiratory failure with hypercapnia; I10 Essential (primary) hypertension; E78.5 Hyperlipidemia, unspecified; I25.10 Atherosclerotic heart disease of native coronary artery without angina pectoris; I73.9 Peripheral vascular disease, unspecified; F32.A Depression, unspecified; F15.10 Other stimulant abuse, uncomplicated; F17.210 Nicotine dependence, cigarettes, uncomplicated; I48.91 Unspecified atrial fibrillation; Z95.1 Presence of aortocoronary bypass graft; Z79.82 Long term (current) use of aspirin; Z79.51 Long term (current) use of inhaled steroids; Z79.899 Other long term (current) drug therapy; Z79.01 Long term (current) use of anticoagulants; Z99.81 Dependence on supplemental oxygen
CPT/HCPCS: 36415; 36600; 71045; 80048; 80053; 80306; 82550; 82805; 83605; 83735; 83880; 84100; 84145; 84484; 85025; 87040; 87070; 87205; 87633; 87811; 93005; 93010; 94640; 94660; 96365; 96366; 96375; 96376; C9113; G0378; J0456; J0696; J1650; J2920; J3475; J3490; J7050; J7120; J7512; J7611; J7620

== ENCOUNTER 2023-05-26 13:39 | Outpatient (CLI) | payer OTHER | END 2023-05-26 13:40 | disposition home or self-care (01) | LOC: BICRAD 13:39 | PROVIDERS: ATTEND Preventive Medicine Occupational Medicine | DX: J44.9 Chronic obstructive pulmonary disease, unspecified (principal) | CPT/HCPCS: 71046 ==

== ENCOUNTER 2024-01-01 10:37 | Outpatient (CLI) | payer OTHER | END 2024-01-01 10:38 | disposition home or self-care (01) | LOC: RAD 10:37 | PROVIDERS: ATTEND Internal Medicine | DX: R06.00 Dyspnea, unspecified (principal); J98.6 Disorders of diaphragm | CPT/HCPCS: 71046 ==

== ENCOUNTER 2024-03-04 19:33 | Inpatient (IN) | payer OTHER ==
[~2024-03-04 19:33] MED LIST: Iopamidol-370 76% 500 ML MDV (1 ML CHARGE) ONE
[2024-03-04 20:28] LABS: #Basophils 0.03 10x3/uL (0.0-0.2); #Eosinophils Less than 0.03 10x3/uL (0.0-0.7); %Basophils 0.2 % (0.0-1.0); %Eosinophils 0.1 % (0.0-10.0); %Lymphocytes 6.6 % (21.0-51.0); %Monocytes 4.4 % (0.0-10.0); %Neutrophils 87.6 % (42.0-75.0); Hemoglobin 14.9 g/dL (14.0-18.0); Mean Corpuscular HGB CONC 33.1 g/dL (32.0-36.0); Mean Corpuscular Hemoglobin 27.2 pg (27.0-31.0); Mean Corpuscular Volume 82.1 fL (78.0-98.0); Mean Platelet Volume 10.3 fL (7.4-10.4); Platelet Count 143 10x3/uL (130-400); Red Blood Cell (RBC) Count 5.48 mill/uL (4.70-6.10)
[2024-03-04 20:38] LABS: ALT (SGPT) 113 U/L (8-55); AST (SGOT) 69 U/L (5-34); Albumin 2.9 g/dL (3.4-4.8); Alkaline Phosphatase 355 U/L (40-110); Anion Gap 14 mmol/L (10-20); BUN (Urea Nitrogen) 15 mg/dL (8.4-25.7); Bilirubin, Total 5.3 mg/dL (0.2-1.2); Calc. Creatinine Clearance 0 mL/min (70-130); Calcium 8.9 mg/dL (7.8-10.44); Carbon Dioxide 21 mmol/L (23-31); Chloride 105 mmol/L (98-107); Estimated GFR 86; Globulin 4.4 g/dL (2.4-3.5); Glucose 115 mg/dL (80-115); Lipase 18 U/L (8-78); Magnesium 1.7 mg/dL (1.6-2.6); Potassium 4.1 mmol/L (3.5-5.1); Protein, Total 7.3 g/dL (5.8-8.1); Sodium 136 mmol/L (136-145)
[2024-03-04 20:44] LABS: Troponin I Less than 0.010 ng/mL (< 0.028)
[2024-03-04] MEDS ORDERED: Albuterol 2.5 MG (3 mL) NEB ONE ×2 (20:52→23:50)
[2024-03-04] MEDS ORDERED: Ipratropium/Albuterol 3 ML NEB ONE (20:52)
[2024-03-04] MEDS ORDERED: Acetaminophen 500 MG TAB ONE (20:56)
[2024-03-04] MEDS ORDERED: methylPREDNISolone Sod Succ/PF 125 MG/2 ML VIAL ONE (20:56)
[2024-03-04] MEDS ORDERED: Sodium Chloride 0.9% 100 ML ONE (23:09)
[2024-03-04] MEDS ORDERED: cefTRIAXone (ROCEPHIN) 1 GM VIAL ONE (23:09)
[2024-03-04] MEDS ORDERED: Albuterol 2.5 MG (0.5 mL) NEB ONE (23:30)
[2024-03-05] MEDS ORDERED: Ipratropium/Albuterol 3 ML NEB NEB PRN (03:48)
[2024-03-05 05:26] VITALS: BMI 24.5
[2024-03-05 05:51] LABS: Troponin I Less than 0.010 ng/mL (< 0.028)
[2024-03-05] MEDS: methylPREDNISolone Sod Succ 40 MG VIAL IVP SCH (06:35)
[2024-03-05 08:00] LABS: Troponin I Less than 0.010 ng/mL (< 0.028)
[2024-03-05] MEDS: Azithromycin 250 MG TAB PO SCH (09:36)
[2024-03-05 13:18] LABS: ALT (SGPT) 103 U/L (8-55); AST (SGOT) 68 U/L (5-34); Albumin 2.6 g/dL (3.4-4.8); Alkaline Phosphatase 328 U/L (40-110); Anion Gap 14 mmol/L (10-20); BUN (Urea Nitrogen) 14 mg/dL (8.4-25.7); Calc. Creatinine Clearance 106 mL/min (70-130); Calcium 8.8 mg/dL (7.8-10.44); Carbon Dioxide 17 mmol/L (23-31); Chloride 108 mmol/L (98-107); Estimated GFR 101; Globulin 4.5 g/dL (2.4-3.5); Glucose 228 mg/dL (80-115); Potassium 4.3 mmol/L (3.5-5.1); Protein, Total 7.1 g/dL (5.8-8.1); Sodium 135 mmol/L (136-145)
[2024-03-05 13:27] LABS: Anisocytosis MODERATE=16-30 cells HPF (0-5); Band 37 % (5-11); Burr Cells MODERATE= 6-15 cells HPF (0-1); Eosinophils 1 % (0-10); Hematocrit 45.8 % (42.0-52.0); Hemoglobin 14.2 g/dL (14.0-18.0); Large Platelets 3.9 % (0-5); Lymphocytes 3 % (21-51); Macrocytosis SLIGHT = 6-15 cells HPF (0-5); Mean Corpuscular Hemoglobin 27.2 pg (27.0-31.0); Mean Corpuscular Volume 87.7 fL (78.0-98.0); Mean Platelet Volume 9.7 fL (7.4-10.4); Neutrophil 59 % (42-75); Platelet Adequacy Comment Platelets Decreased; Platelet Count 126 10x3/uL (130-400); Poikilocytosis MODERATE=16-30 cells HPF (0-5); Polychromasia SLIGHT = 2-3 cells HPF (0-2); RBC Distribution Width 18.2 % (11.5-14.5); Red Blood Cell (RBC) Count 5.22 mill/uL (4.70-6.10); Smudge Cells 5.9 %
[2024-03-05] MEDS: Metoprolol Tartrate 5 MG (5 mL) VIAL IVP SCH (19:39)
[2024-03-05] MEDS: Ipratropium/Albuterol 3 ML NEB NEB SCH (20:29)
[2024-03-05] MEDS: Mometasone 100 MCG HFA INHALER (RT USE) INH SCH (20:31)
[2024-03-05] MEDS: dilTIAZem CD 240 MG CAP PO SCH (20:47)
[2024-03-05] MEDS: Apixaban 5 MG TAB PO SCH (20:47)
[2024-03-05] MEDS: Atorvastatin Calcium 40 MG TAB PO SCH (20:47)
[2024-03-05] MEDS: Doxycycline 100 MG in Sodium Chloride 0.9% 100 ML IVPB SCH (20:49)
[2024-03-05] MEDS: Metoprolol Tartrate 5 MG (5 mL) VIAL IVP PRN (22:35)
[2024-03-05] MEDS: cefTRIAXone\\ROCEPHIN 1 GM in Sodium Chloride 0.9% 100 ML IVPB SCH (22:40)
[2024-03-06 06:35] LABS: #Basophils 0.04 10x3/uL (0.0-0.2); #Eosinophils Less than 0.03 10x3/uL (0.0-0.7); %Basophils 0.3 % (0.0-1.0); %Lymphocytes 7.3 % (21.0-51.0); %Monocytes 2.6 % (0.0-10.0); Hematocrit 45.6 % (42.0-52.0); Hemoglobin 14.4 g/dL (14.0-18.0); Mean Corpuscular HGB CONC 31.6 g/dL (32.0-36.0); Mean Corpuscular Hemoglobin 26.8 pg (27.0-31.0); Mean Corpuscular Volume 84.9 fL (78.0-98.0); Mean Platelet Volume 9.9 fL (7.4-10.4); Platelet Count 150 10x3/uL (130-400); RBC Distribution Width 18.1 % (11.5-14.5); Red Blood Cell (RBC) Count 5.37 mill/uL (4.70-6.10)
[2024-03-06 06:46] LABS: Anion Gap 14 mmol/L (10-20); BUN (Urea Nitrogen) 16 mg/dL (8.4-25.7); Calc. Creatinine Clearance 93 mL/min (70-130); Calcium 8.9 mg/dL (7.8-10.44); Carbon Dioxide 20 mmol/L (23-31); Chloride 105 mmol/L (98-107); Estimated GFR 95; Glucose 285 mg/dL (80-115); Potassium 3.6 mmol/L (3.5-5.1); Sodium 135 mmol/L (136-145)
[2024-03-06] MEDS: Digoxin 0.125 MG TAB PO SCH (09:44)
[2024-03-06] MEDS: Aspirin 81 mg Enteric Coated Tablet PO SCH (09:45)
[2024-03-06 10:16] LABS: Magnesium 1.8 mg/dL (1.6-2.6)
[2024-03-06 10:17] LABS: ALT (SGPT) 137 U/L (8-55); AST (SGOT) 90 U/L (5-34); Albumin 2.6 g/dL (3.4-4.8); Alkaline Phosphatase 298 U/L (40-110); Bilirubin, Direct 0.9 mg/dL (0.1-0.3); Bilirubin, Total 1.5 mg/dL (0.2-1.2); Protein, Total 6.7 g/dL (5.8-8.1)
[2024-03-06] MEDS: Potassium Chloride 20 MEQ TAB PO SCH (11:35)
[2024-03-06] MEDS: Doxycycline 100 MG CAP PO SCH (21:58)
[2024-03-06] MEDS: methylPREDNISolone Sod Succ 40 MG VIAL IVP SCH (21:59)
[2024-03-07 04:54] LABS: #Basophils 0.13 10x3/uL (0.0-0.2); %Basophils 0.7 % (0.0-1.0); %Eosinophils 0.4 % (0.0-10.0); %Lymphocytes 7.3 % (21.0-51.0); %Monocytes 5.3 % (0.0-10.0); %Neutrophils 81.4 % (42.0-75.0); Hematocrit 43.7 % (42.0-52.0); Hemoglobin 14.2 g/dL (14.0-18.0); Mean Corpuscular HGB CONC 32.5 g/dL (32.0-36.0); Mean Corpuscular Hemoglobin 27.2 pg (27.0-31.0); Mean Corpuscular Volume 83.7 fL (78.0-98.0); Platelet Count 190 10x3/uL (130-400); RBC Distribution Width 18.1 % (11.5-14.5); Red Blood Cell (RBC) Count 5.22 mill/uL (4.70-6.10)
[2024-03-07 05:18] LABS: Anion Gap 14 mmol/L (10-20); BUN (Urea Nitrogen) 19 mg/dL (8.4-25.7); Calc. Creatinine Clearance 104 mL/min (70-130); Calcium 8.8 mg/dL (7.8-10.44); Carbon Dioxide 21 mmol/L (23-31); Chloride 109 mmol/L (98-107); Estimated GFR 100; Glucose 167 mg/dL (80-115); Magnesium 1.8 mg/dL (1.6-2.6); Potassium 3.8 mmol/L (3.5-5.1); Sodium 140 mmol/L (136-145)
[2024-03-07 05:26] LABS: HBSAB Concentration Less than 8.00 mIU/mL; HBsAg Index 0.25 S/CO (0-0.99); Hep B Core Total Ab NONREACTIVE (NonReactive); Hep B Surf AB NONREACTIVE (NonReactive); Hep B Surf Ag NONREACTIVE S/CO (NonReactive); Hep C IgG Ab NONREACTIVE S/CO (NonReactive); Hep C Index 0.05 S/CO (0-0.79)
[2024-03-07 09:36] LABS: ALT (SGPT) 147 U/L (8-55); AST (SGOT) 75 U/L (5-34); Albumin 2.8 g/dL (3.4-4.8); Alkaline Phosphatase 304 U/L (40-110); Bilirubin, Direct 0.7 mg/dL (0.1-0.3); Bilirubin, Total 1.3 mg/dL (0.2-1.2); Protein, Total 6.5 g/dL (5.8-8.1)
[2024-03-07] MEDS: methylPREDNISolone Sod Succ 40 MG VIAL IVP SCH (09:53)
[2024-03-08 04:07] LABS: Anion Gap 12 mmol/L (10-20); BUN (Urea Nitrogen) 20 mg/dL (8.4-25.7); Calc. Creatinine Clearance 109 mL/min (70-130); Calcium 8.8 mg/dL (7.8-10.44); Carbon Dioxide 27 mmol/L (23-31); Chloride 104 mmol/L (98-107); Estimated GFR 101; Glucose 125 mg/dL (80-115); Magnesium 1.8 mg/dL (1.6-2.6); Potassium 3.8 mmol/L (3.5-5.1); Sodium 139 mmol/L (136-145)
[2024-03-08 04:08] LABS: Hematocrit 42.5 % (42.0-52.0); Hemoglobin 13.7 g/dL (14.0-18.0); Mean Corpuscular HGB CONC 32.2 g/dL (32.0-36.0); Mean Corpuscular Hemoglobin 27.1 pg (27.0-31.0); Mean Corpuscular Volume 84.2 fL (78.0-98.0); Mean Platelet Volume 9.5 fL (7.4-10.4); Platelet Count 209 10x3/uL (130-400); RBC Distribution Width 18.1 % (11.5-14.5); Red Blood Cell (RBC) Count 5.05 mill/uL (4.70-6.10)
[2024-03-08 04:11] LABS: ALT (SGPT) 136 U/L (8-55); AST (SGOT) 53 U/L (5-34); Albumin 2.8 g/dL (3.4-4.8); Alkaline Phosphatase 265 U/L (40-110); Bilirubin, Direct 0.6 mg/dL (0.1-0.3); Bilirubin, Total 1.2 mg/dL (0.2-1.2); Protein, Total 6.2 g/dL (5.8-8.1)
[2024-03-08 04:49] LABS: Anisocytosis SLIGHT = 6-15 cells HPF (0-5); Burr Cells SLIGHT = 2-5 cells HPF (0-1); Elliptocytes SLIGHT = 2-5 cells HPF (0-1); Lymphocytes 6 % (21-51); Monocytes 7 % (0-10); Myelocyte 7 % (0-0); Neutrophil 77 % (42-75); Nucleated RBC (Manual Ct) 2 % (0); Platelet Adequacy Comment Platelets Normal; Polychromasia SLIGHT = 2-3 cells HPF (0-2); Promyelocytes 3 % (0-0); Vacuoles SLIGHT
[2024-03-08 14:46] LABS: Hematocrit 44.2 % (42.0-52.0); Hemoglobin 14.6 g/dL (14.0-18.0); Mean Corpuscular Hemoglobin 27.7 pg (27.0-31.0); Mean Corpuscular Volume 83.7 fL (78.0-98.0); Mean Platelet Volume 9.4 fL (7.4-10.4); Platelet Count 232 10x3/uL (130-400); RBC Distribution Width 18.1 % (11.5-14.5); Red Blood Cell (RBC) Count 5.28 mill/uL (4.70-6.10)
[2024-03-08 14:57] LABS: Anisocytosis MODERATE=16-30 cells HPF (0-5); Band 3 % (5-11); Burr Cells SLIGHT = 2-5 cells HPF (0-1); Eosinophils 2 % (0-10); Lymphocytes 10 % (21-51); Macrocytosis SLIGHT = 6-15 cells HPF (0-5); Monocytes 11 % (0-10); Neutrophil 70 % (42-75); Other Cell Types 2.9; Ovalocytes SLIGHT = 2-5 cells HPF (0-1); Plasma Cells 1 % (0-0); Platelet Adequacy Comment Platelets Normal; Reactive Lymphocytes 1 % (0-10); Smudge Cells 28.4 %
[2024-03-08 23:34] LABS: Hep A IgM AB NONREACTIVE (NonReactive); Hep A IgM S/CO 0.24 S/CO (0-0.79)
[2024-03-09 04:27] LABS: Hemoglobin 13.7 g/dL (14.0-18.0); Mean Corpuscular HGB CONC 31.9 g/dL (32.0-36.0); Mean Corpuscular Hemoglobin 27.1 pg (27.0-31.0); Mean Platelet Volume 9.3 fL (7.4-10.4); Platelet Count 224 10x3/uL (130-400); RBC Distribution Width 18.2 % (11.5-14.5); Red Blood Cell (RBC) Count 5.06 mill/uL (4.70-6.10)
[2024-03-09 04:30] LABS: ALT (SGPT) 136 U/L (8-55); AST (SGOT) 58 U/L (5-34); Albumin 2.6 g/dL (3.4-4.8); Alkaline Phosphatase 222 U/L (40-110); Bilirubin, Direct 0.5 mg/dL (0.1-0.3); Bilirubin, Total 0.9 mg/dL (0.2-1.2); Protein, Total 5.8 g/dL (5.8-8.1)
[2024-03-09 04:33] LABS: Anion Gap 12 mmol/L (10-20); BUN (Urea Nitrogen) 27 mg/dL (8.4-25.7); Calc. Creatinine Clearance 111 mL/min (70-130); Calcium 8.4 mg/dL (7.8-10.44); Carbon Dioxide 28 mmol/L (23-31); Chloride 105 mmol/L (98-107); Estimated GFR 102; Glucose 89 mg/dL (80-115); Magnesium 1.7 mg/dL (1.6-2.6); Potassium 3.5 mmol/L (3.5-5.1); Sodium 141 mmol/L (136-145)
[2024-03-09 06:00] LABS: Band 7 % (5-11); Lymphocytes 8 % (21-51); Metamyelocyte 6 % (0-0); Monocytes 5 % (0-10); Myelocyte 8 % (0-0); Neutrophil 64 % (42-75); Nucleated RBC (Manual Ct) 3 % (0); Platelet Adequacy Comment Platelets Normal; Polychromasia SLIGHT = 2-3 cells HPF (0-2); Reactive Lymphocytes 4 % (0-10); Smudge Cells 13.5 %
[2024-03-09 10:34] LABS: Hemoglobin 14.1 g/dL (14.0-18.0); Mean Corpuscular Hemoglobin 27.3 pg (27.0-31.0); Mean Corpuscular Volume 85.1 fL (78.0-98.0); Mean Platelet Volume 9.5 fL (7.4-10.4); Platelet Count 239 10x3/uL (130-400); RBC Distribution Width 18.3 % (11.5-14.5); Red Blood Cell (RBC) Count 5.17 mill/uL (4.70-6.10)
[2024-03-09 11:06] LABS: Band 3 % (5-11); Large Platelets 3.9 % (0-5); Lymphocytes 9 % (21-51); Metamyelocyte 9 % (0-0); Monocytes 9 % (0-10); Myelocyte 3 % (0-0); Neutrophil 66 % (42-75); Platelet Adequacy Comment Platelets Normal; Polychromasia SLIGHT = 2-3 cells HPF (0-2); Reactive Lymphocytes 2 % (0-10); Smudge Cells 5.8 %
[2024-03-09] MEDS: Polyethylene Glycol 3350 17 GM Packet PO SCH (12:40)
[2024-03-09] MEDS ORDERED: Iopamidol 370 76% 100 ML VIAL ONE (15:40)
[2024-03-09] MEDS: Senokot S 8.6-50 MG TAB PO SCH (21:26)
[2024-03-09 22:58] LABS: Actual Bicarbonate (HCO3a) 23.1 mEq/L (22-28); Base Excess (BEa) -2.8 mEq/L (-2.0 to +3.0); CO2 Tension 44.9 mmHg (35.0-45.0); Calcium, Ionized (arterial) 1.15 mmol/L (1.12-1.30); Carboxyhemoglobin (COHb) 0.5 gm% (0.0-3.0); Hematocrit-ABG 36 % (42.0-52.0); Hemoglobin (Hb) 12.4 g/dL (14.0-18.0); O2 Tension (PaO2), arterial 223.8 mmHg (> 80.0); Potassium - ABG Lab 4.07 mmol/L (3.70-5.30)
[2024-03-09 23:01] LABS: ALV-art Gradient 433.075 mmHg (0-20); Puncture Site Right Radial artery
[2024-03-09 23:49] LABS: Lactic Acid 2.13 mmol/L (0.5-2.2)
[2024-03-09 23:51] LABS: Calc. Creatinine Clearance 108 mL/min (70-130); Estimated GFR 101
[2024-03-09 23:53] LABS: ALT (SGPT) 105 U/L (8-55); AST (SGOT) 51 U/L (5-34); Albumin 2.3 g/dL (3.4-4.8); Alkaline Phosphatase 166 U/L (40-110); Anion Gap 13 mmol/L (10-20); BUN (Urea Nitrogen) 49 mg/dL (8.4-25.7); Bilirubin, Total 0.6 mg/dL (0.2-1.2); Calcium 7.9 mg/dL (7.8-10.44); Carbon Dioxide 23 mmol/L (23-31); Chloride 106 mmol/L (98-107); Glucose 86 mg/dL (80-115); Magnesium 1.9 mg/dL (1.6-2.6); Potassium 4.6 mmol/L (3.5-5.1); Protein, Total 5.3 g/dL (5.8-8.1); Sodium 137 mmol/L (136-145)
[2024-03-10 00:02] LABS: Hematocrit 35.6 % (42.0-52.0); Hemoglobin 11.4 g/dL (14.0-18.0); Mean Corpuscular Hemoglobin 27.6 pg (27.0-31.0); Mean Corpuscular Volume 86.2 fL (78.0-98.0); Mean Platelet Volume 9.4 fL (7.4-10.4); Platelet Count 251 10x3/uL (130-400); RBC Distribution Width 17.6 % (11.5-14.5); Red Blood Cell (RBC) Count 4.13 mill/uL (4.70-6.10)
[2024-03-10 00:04] LABS: Band 7 % (5-11); Eosinophils 3 % (0-10); Hypochromia SLIGHT = 6-15 cells HPF (0-5); Lymphocytes 8 % (21-51); Metamyelocyte 6 % (0-0); Monocytes 11 % (0-10); Myelocyte 5 % (0-0); Neutrophil 57 % (42-75); Platelet Adequacy Comment Platelets Normal; Polychromasia SLIGHT = 2-3 cells HPF (0-2); Promyelocytes 1 % (0-0); Reactive Lymphocytes 3 % (0-10)
[2024-03-10 02:17] LABS: Bacteria/HPF None Seen HPF (None Seen); Bilirubin Negative (Negative); Blood, Urine Negative (Negative); CAUTI Indications for Culture Alt mental st,lethar; Clarity Clear (Clear); Glucose, Urine (Dipstick) Normal (Negative); Ketone, Urine Negative (Negative); Leukocyte Negative Leu/uL (Negative); Nitrite Negative (Negative); Protein, Urine (Dipstick) Negative (Neg-Trace); RBC/HPF 0-3 HPF (0-3); Specific Gravity, Urine 1.022 (1.002-1.036); Squamous Epithelial 0-3 HPF (0-3); Urobilinogen Normal mg/dL (Less than 2); WBC/HPF 0-3 HPF (0-3); pH, Urine 5.5 (5.0-9.0)
[2024-03-10 02:21] LABS: Urine Culture Reflex No No
[2024-03-10] MEDS: Famotidine/PF 20 mg/2ml Vial SLOW IVP SCH (08:18)
[2024-03-10] MEDS: predniSONE 20 MG TAB PO SCH (08:19)
[2024-03-10] MEDS: Pantoprazole 40 MG VIAL IVP SCH (08:52)
[2024-03-10] MEDS: Polyethylene Glycol 3350 17 GM Packet PO SCH (08:54)
[2024-03-10] MEDS: Morphine 2 MG/ML VIAL SLOW IVP PRN (09:43)
[2024-03-10 10:14] LABS: Amphetamine Not Detected (NotDetected); Barbiturates Screen Not Detected (NotDetected); Benzodiazepine Screen Not Detected (NotDetected); Cocaine Metabolite Screen Not Detected (NotDetected); Methadone Not Detected (NotDetected); Methamphetamine Not Detected (NotDetected); Opiate Screen Not Detected (NotDetected); Oxycodone Screen Not Detected (NotDetected); Phencyclidine (PCP) Not Detected (NotDetected); THC/Cannabinoid Screen Not Detected (NotDetected); Tricyclic Screen Not Detected (NotDetected)
[2024-03-10 11:30] LABS: Hematocrit 30.3 % (42.0-52.0); Hemoglobin 9.8 g/dL (14.0-18.0); Mean Corpuscular HGB CONC 32.3 g/dL (32.0-36.0); Mean Corpuscular Hemoglobin 27.2 pg (27.0-31.0); Mean Corpuscular Volume 84.2 fL (78.0-98.0); Mean Platelet Volume 10.1 fL (7.4-10.4); Platelet Count 297 10x3/uL (130-400); RBC Distribution Width 17.4 % (11.5-14.5)
[2024-03-10] MEDS: Sodium Chloride 0.9% 1,000 ML IV SCH (14:30)
[2024-03-10 18:11] LABS: Hematocrit 28.5 % (42.0-52.0); Hemoglobin 9.3 g/dL (14.0-18.0); Mean Corpuscular HGB CONC 32.6 g/dL (32.0-36.0); Mean Corpuscular Hemoglobin 27.8 pg (27.0-31.0); Mean Corpuscular Volume 85.3 fL (78.0-98.0); Platelet Count 292 10x3/uL (130-400); Red Blood Cell (RBC) Count 3.34 mill/uL (4.70-6.10)
[2024-03-10] MEDS: Melatonin 3 MG TAB PO SCH (20:26)
[2024-03-11 04:22] LABS: Hemoglobin 7.8 g/dL (14.0-18.0); Mean Corpuscular HGB CONC 32.5 g/dL (32.0-36.0); Mean Platelet Volume 9.9 fL (7.4-10.4); Platelet Count 260 10x3/uL (130-400); RBC Distribution Width 18.3 % (11.5-14.5); Red Blood Cell (RBC) Count 2.79 mill/uL (4.70-6.10)
[2024-03-11] MEDS ORDERED: Sodium Chloride 0.9% 500 ML IV SCH (04:30)
[2024-03-11] MEDS: Sodium Chloride 0.9% 500 ML IV SCH (04:40)
[2024-03-11] MEDS: Albumin 25% 25 GM (100 mL) BOT IVPB SCH (04:40)
[2024-03-11 04:41] LABS: ALT (SGPT) 57 U/L (8-55); AST (SGOT) 22 U/L (5-34); Albumin 2.2 g/dL (3.4-4.8); Alkaline Phosphatase 116 U/L (40-110); Anion Gap 10 mmol/L (10-20); BUN (Urea Nitrogen) 56 mg/dL (8.4-25.7); Calc. Creatinine Clearance 80 mL/min (70-130); Carbon Dioxide 28 mmol/L (23-31); Chloride 105 mmol/L (98-107); Estimated GFR 81; Glucose 113 mg/dL (80-115); Potassium 4.7 mmol/L (3.5-5.1); Protein, Total 5.2 g/dL (5.8-8.1); Sodium 138 mmol/L (136-145)
[2024-03-11 05:21] LABS: Anisocytosis SLIGHT = 6-15 cells HPF (0-5); Band 3 % (5-11); Lymphocytes 4 % (21-51); Monocytes 1 % (0-10); Myelocyte 3 % (0-0); Neutrophil 88 % (42-75); Platelet Adequacy Comment Platelets Normal; Polychromasia SLIGHT = 2-3 cells HPF (0-2); Promyelocytes 1 % (0-0); Smudge Cells 10.9 %
[2024-03-11] MEDS ORDERED: Lidocaine 1% PF 5 ML VIAL ONE (09:08)
[2024-03-11] MEDS ORDERED: PROPOFOL 20 ML ONE ×2 (09:08→11:04)
[2024-03-11 09:28] VITALS: BMI 24.3
[2024-03-11] MEDS ORDERED: Midazolam HCl 2 mg/2 ml Vial ONE (11:16)
[2024-03-11] MEDS ORDERED: ePHEDrine Sulfate 50 MG/10 ML VIAL ONE (11:16)
[2024-03-11] MEDS ORDERED: Ondansetron PF 4 MG/2 ML Vial ONE (11:16)
[2024-03-11] MEDS ORDERED: Glycopyrrolate 0.2 MG/ML 5 ML SYRINGE ONE (11:20)
[2024-03-11] MEDS ORDERED: PHENYLEPHRINE-NS 100 MCG/ML 10 ML SYRINGE ONE ×2 (11:29→11:43)
[2024-03-11 18:56] LABS: Hematocrit 26.3 % (42.0-52.0); Hemoglobin 8.7 g/dL (14.0-18.0); Mean Corpuscular HGB CONC 33.1 g/dL (32.0-36.0); Mean Corpuscular Hemoglobin 28.4 pg (27.0-31.0); Mean Corpuscular Volume 85.9 fL (78.0-98.0); Mean Platelet Volume 9.3 fL (7.4-10.4); Platelet Count 182 10x3/uL (130-400); RBC Distribution Width 16.9 % (11.5-14.5); Red Blood Cell (RBC) Count 3.06 mill/uL (4.70-6.10)
[2024-03-12 05:09] LABS: Hematocrit 26.1 % (42.0-52.0); Hemoglobin 8.6 g/dL (14.0-18.0); Mean Corpuscular Hemoglobin 28.4 pg (27.0-31.0); Mean Corpuscular Volume 86.1 fL (78.0-98.0); Mean Platelet Volume 9.8 fL (7.4-10.4); Platelet Count 194 10x3/uL (130-400); RBC Distribution Width 17.1 % (11.5-14.5); Red Blood Cell (RBC) Count 3.03 mill/uL (4.70-6.10)
[2024-03-12 05:36] LABS: Band 1 % (5-11); Eosinophils 1 % (0-10); Lymphocytes 9 % (21-51); Metamyelocyte 1 % (0-0); Monocytes 8 % (0-10); Myelocyte 4 % (0-0); Neutrophil 74 % (42-75); Nucleated RBC (Manual Ct) 2 % (0); Platelet Adequacy Comment Platelets Normal; Polychromasia SLIGHT = 2-3 cells HPF (0-2); Promyelocytes 1 % (0-0); Reactive Lymphocytes 1 % (0-10); Smudge Cells 6.9 %
[2024-03-12 05:38] LABS: Anion Gap 9 mmol/L (10-20); BUN (Urea Nitrogen) 25 mg/dL (8.4-25.7); Calc. Creatinine Clearance 101 mL/min (70-130); Calcium 7.8 mg/dL (7.8-10.44); Carbon Dioxide 26 mmol/L (23-31); Chloride 106 mmol/L (98-107); Estimated GFR 99; Glucose 86 mg/dL (80-115); Potassium 4.1 mmol/L (3.5-5.1); Sodium 137 mmol/L (136-145)
[2024-03-12] MEDS ORDERED: Electrolyte Replacement Protocol FS PRN (08:30)
[2024-03-12] MEDS: Electrolyte Replacement Protocol 1 EACH FS ONE (09:57)
[2024-03-12] MEDS: Magnesium 2 GM/50 ML(in water) 2 GM in Premix 1 BAG IVPB SCH (10:06)
[2024-03-12] MEDS: dilTIAZem CD 120 MG CAP PO SCH ×2 (10:27→19:29)
[2024-03-12 19:34] LABS: Magnesium 1.9 mg/dL (1.6-2.6)
[2024-03-12] MEDS: Cyanocobalamin (Vitamin B-12) 1,000 MCG TAB PO SCH (20:15)
[2024-03-12] MEDS: Thiamine 100 MG TAB PO SCH (20:15)
[2024-03-12] MEDS: Folic Acid 1 MG TAB PO SCH (20:15)
[2024-03-12] MEDS: Multivit, Therapeutic 1 TAB PO SCH (20:16)
[2024-03-13 05:54] LABS: Hematocrit 24.7 % (42.0-52.0); Hemoglobin 8.3 g/dL (14.0-18.0); Mean Corpuscular HGB CONC 33.6 g/dL (32.0-36.0); Mean Corpuscular Hemoglobin 29.1 pg (27.0-31.0); Mean Corpuscular Volume 86.7 fL (78.0-98.0); Platelet Count 216 10x3/uL (130-400); RBC Distribution Width 17.4 % (11.5-14.5); Red Blood Cell (RBC) Count 2.85 mill/uL (4.70-6.10)
[2024-03-13 05:59] LABS: ALT (SGPT) 45 U/L (8-55); AST (SGOT) 27 U/L (5-34); Albumin 2.5 g/dL (3.4-4.8); Alkaline Phosphatase 144 U/L (40-110); Anion Gap 9 mmol/L (10-20); BUN (Urea Nitrogen) 13 mg/dL (8.4-25.7); Calc. Creatinine Clearance 102 mL/min (70-130); Calcium 7.9 mg/dL (7.8-10.44); Carbon Dioxide 27 mmol/L (23-31); Chloride 107 mmol/L (98-107); Estimated GFR 99; Globulin 2.8 g/dL (2.4-3.5); Glucose 91 mg/dL (80-115); Magnesium 1.9 mg/dL (1.6-2.6); Potassium 4.2 mmol/L (3.5-5.1); Protein, Total 5.3 g/dL (5.8-8.1); Sodium 139 mmol/L (136-145)
[2024-03-13 07:37] LABS: Band 11 % (5-11); Eosinophils 2 % (0-10); Lymphocytes 8 % (21-51); Metamyelocyte 1 % (0-0); Monocytes 7 % (0-10); Myelocyte 3 % (0-0); Neutrophil 68 % (42-75); Ovalocytes SLIGHT = 2-5 cells HPF (0-1); Platelet Adequacy Comment Platelets Normal; Polychromasia SLIGHT = 2-3 cells HPF (0-2); Reactive Lymphocytes 1 % (0-10)
[2024-03-13] MEDS: Magnesium 2 GM/50 ML(in water) 2 GM in Premix 1 BAG IVPB SCH (08:47)
[2024-03-13] MEDS: Digoxin 0.5 MG/2 ML AMP SLOW IVP SCH (21:20)
[2024-03-13] MEDS: Amiodarone 200 MG TAB PO SCH (21:22)
[2024-03-14 06:14] LABS: Hemoglobin 8.8 g/dL (14.0-18.0); Mean Corpuscular HGB CONC 33.8 g/dL (32.0-36.0); Mean Corpuscular Hemoglobin 29.3 pg (27.0-31.0); Mean Corpuscular Volume 86.7 fL (78.0-98.0); Mean Platelet Volume 9.7 fL (7.4-10.4); Platelet Count 257 10x3/uL (130-400); RBC Distribution Width 18.6 % (11.5-14.5)
[2024-03-14 06:34] LABS: Band 2 % (5-11); Eosinophils 2 % (0-10); Lymphocytes 8 % (21-51); Metamyelocyte 2 % (0-0); Monocytes 1 % (0-10); Neutrophil 82 % (42-75); Platelet Adequacy Comment Platelets Normal; Polychromasia SLIGHT = 2-3 cells HPF (0-2); Reactive Lymphocytes 1 % (0-10)
[2024-03-14] MEDS: Magnesium 2 GM/50 ML(in water) 2 GM in Premix 1 BAG IVPB SCH (09:11)
[2024-03-14] MEDS ORDERED: Apixaban 5 MG TAB PO SCH ×2 (10:26→21:00)
[2024-03-14] MEDS ORDERED: dilTIAZem CD 120 MG CAP PO SCH (10:28)
[2024-03-14] MEDS ORDERED: Bisacodyl 10 MG SUPP PR SCH (10:30)
[2024-03-14] MEDS ORDERED: traMADol HCl 50 MG TAB PO PRN (10:30)
[2024-03-14] MEDS: Bisacodyl 10 MG SUPP PR SCH ×2 (11:40→15:53)
[2024-03-14] MEDS: Apixaban 5 MG TAB PO SCH (11:40)
[2024-03-14] MEDS: dilTIAZem CD 120 MG CAP PO SCH (11:40)
[2024-03-14 17:04] VITALS: BP 128/54; TEMP 97.7
[2024-03-14] MEDS: dilTIAZem CD 240 MG CAP PO SCH (18:03)
[2024-03-14] MEDS ORDERED: dilTIAZem CD 240 MG CAP PO SCH (21:00)
[2024-03-15] MEDS ORDERED: Digoxin 0.125 MG TAB PO SCH (09:00)
== END 2024-03-14 20:09 | disposition home or self-care (01) | DRG 189 ==
LOC: ERS 19:33 → 2SE 03-05 03:51 → 2NO 03-08 21:23 → CCU 03-09 23:16 → T4-A 03-12 16:34
PROVIDERS: ADMIT Hospitalist; ATTEND Internal Medicine
PROC: 4A133R1 Monitoring of Arterial Saturation, Peripheral, Percutaneous Approach (ICD-10-PCS; 2024-03-09)
PROC: XX20X89 Monitoring of Brain Electrical Activity, Computer-aided Detection and Notification, New Technology Group 9 (ICD-10-PCS; 2024-03-10)
PROC: 30233N1 Transfusion of Nonautologous Red Blood Cells into Peripheral Vein, Percutaneous Approach (ICD-10-PCS; principal; 2024-03-11)
PROC: 30233J1 Transfusion of Nonautologous Serum Albumin into Peripheral Vein, Percutaneous Approach (ICD-10-PCS; 2024-03-11)
PROC: 3E033XZ Introduction of Vasopressor into Peripheral Vein, Percutaneous Approach (ICD-10-PCS; 2024-03-11)
PROC: 3E0G8GC Introduction of Other Therapeutic Substance into Upper GI, Via Natural or Artificial Opening Endoscopic (ICD-10-PCS; 2024-03-11)
PROC: 0W3P8ZZ Control Bleeding in Gastrointestinal Tract, Via Natural or Artificial Opening Endoscopic (ICD-10-PCS; 2024-03-11)
PROC: 5A12012 Performance of Cardiac Output, Single, Manual (ICD-10-PCS; 2024-03-11)
DX: J96.01 Acute respiratory failure with hypoxia (principal); G93.41 Metabolic encephalopathy; K26.4 Chronic or unspecified duodenal ulcer with hemorrhage; I46.9 Cardiac arrest, cause unspecified; J44.1 Chronic obstructive pulmonary disease with (acute) exacerbation; R65.10 Systemic inflammatory response syndrome (SIRS) of non-infectious origin without acute organ dysfunction; D62 Acute posthemorrhagic anemia; I48.20 Chronic atrial fibrillation, unspecified; G40.409 Other generalized epilepsy and epileptic syndromes, not intractable, without status epilepticus; I10 Essential (primary) hypertension; I71.9 Aortic aneurysm of unspecified site, without rupture; F15.10 Other stimulant abuse, uncomplicated; D72.829 Elevated white blood cell count, unspecified; E78.5 Hyperlipidemia, unspecified; Z95.2 Presence of prosthetic heart valve; Z95.1 Presence of aortocoronary bypass graft; Z79.82 Long term (current) use of aspirin; Z79.02 Long term (current) use of antithrombotics/antiplatelets; Z79.899 Other long term (current) drug therapy
CPT/HCPCS: 36415; 36430; 36600; 70450; 70487; 71045; 71260; 74177; 76705; 80048; 80053; 80076; 80306; 81001; 82274; 82805; 83605; 83690; 83735; 83880; 84100; 84484; 85025; 85027; 85060; 86704; 86706; 86708; 86709; 86803; 86850; 86900; 86901; 87040; 87077; 87149; 87340; 87428; 88184; 93005; 93010; 94640; 94760; 95705; 96374; 96375; J0696; J2250; J2272; J2405; J2470; J2704; J2919; J3475; J3490; J7030; J7512; J7611; J7620; P9016; P9047; Q9967

== ENCOUNTER 2024-03-17 11:37 | Observation (INO) | payer OTHER ==
[2024-03-17 12:23] LABS: #Basophils 0.04 10x3/uL (0.0-0.2); %Basophils 0.2 % (0.0-1.0); %Eosinophils 0.8 % (0.0-10.0); %Lymphocytes 7.2 % (21.0-51.0); %Neutrophils 80.8 % (42.0-75.0); Hematocrit 27.8 % (42.0-52.0); Hemoglobin 8.9 g/dL (14.0-18.0); Mean Corpuscular Hemoglobin 28.2 pg (27.0-31.0); Mean Platelet Volume 9.1 fL (7.4-10.4); Platelet Count 370 10x3/uL (130-400); Red Blood Cell (RBC) Count 3.16 mill/uL (4.70-6.10)
[2024-03-17 12:41] LABS: ALT (SGPT) 47 U/L (8-55); AST (SGOT) 29 U/L (5-34); Alkaline Phosphatase 214 U/L (40-110); Anion Gap 11 mmol/L (10-20); BUN (Urea Nitrogen) 22 mg/dL (8.4-25.7); Bilirubin, Total 1.1 mg/dL (0.2-1.2); Calc. Creatinine Clearance 0 mL/min (70-130); Calcium 8.9 mg/dL (7.8-10.44); Carbon Dioxide 28 mmol/L (23-31); Chloride 101 mmol/L (98-107); Estimated GFR 88; Globulin 4.2 g/dL (2.4-3.5); Glucose 168 mg/dL (80-115); Lipase 52 U/L (8-78); Magnesium 2.1 mg/dL (1.6-2.6); Potassium 4.4 mmol/L (3.5-5.1); Protein, Total 7.2 g/dL (5.8-8.1); Sodium 136 mmol/L (136-145)
[2024-03-17 12:46] LABS: Troponin I 0.031 ng/mL (< 0.028)
[2024-03-17 13:08] LABS: Bacteria/HPF None Seen HPF (None Seen); Bilirubin Negative (Negative); Blood, Urine Negative (Negative); CAUTI Indications for Culture Dysuria,urgency,freq; Clarity Clear (Clear); Glucose, Urine (Dipstick) Normal (Negative); Ketone, Urine Negative (Negative); Leukocyte Negative Leu/uL (Negative); Nitrite Negative (Negative); Protein, Urine (Dipstick) Negative (Neg-Trace); RBC/HPF 0-3 HPF (0-3); Specific Gravity, Urine 1.023 (1.002-1.036); Squamous Epithelial 0-3 HPF (0-3); Urobilinogen Normal mg/dL (Less than 2); WBC/HPF 0-3 HPF (0-3)
[2024-03-17] MEDS ORDERED: Morphine 4 MG/ML VIAL ONE (13:12)
[2024-03-17] MEDS ORDERED: Ondansetron PF 4 MG/2 ML Vial ONE (13:12)
[2024-03-17 13:13] LABS: Urine Culture Reflex No No
[2024-03-17] MEDS ORDERED: Iopamidol-370 76% 500 ML MDV (1 ML CHARGE) ONE (14:53)
[2024-03-17 15:08] LABS: Acetaminophen Less than 10 mcg/mL (Less than 10); Alcohol Less than 10.0 mg/dL (Less than 10); Salicylate Less than 8.0 mg/dL (Less than 8.0)
[2024-03-17 15:24] LABS: Amphetamine Not Detected (NotDetected); Barbiturates Screen Not Detected (NotDetected); Benzodiazepine Screen Not Detected (NotDetected); Cocaine Metabolite Screen Not Detected (NotDetected); Methadone Not Detected (NotDetected); Methamphetamine Not Detected (NotDetected); Opiate Screen Not Detected (NotDetected); Oxycodone Screen Not Detected (NotDetected); Phencyclidine (PCP) Not Detected (NotDetected); THC/Cannabinoid Screen Not Detected (NotDetected); Tricyclic Screen Not Detected (NotDetected)
[2024-03-17] MEDS ORDERED: Senokot 8.6 MG TAB PO PRN (15:46)
[2024-03-17] MEDS ORDERED: Polyethylene Glycol 3350 17 GM Packet PO PRN (15:46)
[2024-03-17] MEDS ORDERED: Bisacodyl 5 MG TAB PO PRN (15:46)
[2024-03-17 16:25] LABS: Troponin I 0.023 ng/mL (< 0.028)
[2024-03-17] MEDS: Bisacodyl 10 MG SUPP PR SCH (18:05)
[2024-03-17 18:07] VITALS: BMI 26.5
[2024-03-17 18:41] LABS: Troponin I 0.017 ng/mL (< 0.028)
[2024-03-17] MEDS: Atorvastatin Calcium 40 MG TAB PO SCH (21:02)
[2024-03-17] MEDS: Apixaban 5 MG TAB PO SCH (21:02)
[2024-03-17] MEDS: Pantoprazole 40 MG DR.TAB PO SCH (21:02)
[2024-03-17] MEDS: Acetaminophen 325 MG TAB PO PRN (21:03)
[2024-03-17] MEDS: Melatonin 3 MG TAB PO PRN (21:56)
[2024-03-18 09:08] LABS: #Basophils 0.04 10x3/uL (0.0-0.2); %Basophils 0.3 % (0.0-1.0); %Eosinophils 1.2 % (0.0-10.0); %Lymphocytes 9.7 % (21.0-51.0); %Monocytes 11.5 % (0.0-10.0); %Neutrophils 74.7 % (42.0-75.0); Hemoglobin 8.5 g/dL (14.0-18.0); Mean Corpuscular HGB CONC 31.5 g/dL (32.0-36.0); Mean Corpuscular Hemoglobin 27.9 pg (27.0-31.0); Mean Corpuscular Volume 88.5 fL (78.0-98.0); Mean Platelet Volume 8.8 fL (7.4-10.4); Platelet Count 366 10x3/uL (130-400); Red Blood Cell (RBC) Count 3.05 mill/uL (4.70-6.10)
[2024-03-18 09:50] LABS: Anion Gap 10 mmol/L (10-20); BUN (Urea Nitrogen) 14 mg/dL (8.4-25.7); Calc. Creatinine Clearance 96 mL/min (70-130); Calcium 8.4 mg/dL (7.8-10.44); Carbon Dioxide 28 mmol/L (23-31); Chloride 104 mmol/L (98-107); Estimated GFR 93; Glucose 90 mg/dL (80-115); Potassium 4.4 mmol/L (3.5-5.1); Sodium 138 mmol/L (136-145)
[2024-03-18] MEDS ORDERED: Regadenoson 0.4 MG/5 ML SYRINGE ONE (10:54)
[2024-03-18] MEDS: Aspirin 81 mg Enteric Coated Tablet PO SCH (13:32)
[2024-03-18] MEDS: Digoxin 0.125 MG TAB PO SCH (13:32)
[2024-03-18] MEDS: Polyethylene Glycol 3350 17 GM Packet PO SCH (13:33)
[2024-03-18 17:09] VITALS: BP 107/67; TEMP 98
== END 2024-03-18 17:00 | disposition home or self-care (01) ==
LOC: ERS 11:37 → OBS 16:23
PROVIDERS: ADMIT Internal Medicine; ATTEND Internal Medicine
DX: K59.00 Constipation, unspecified (principal); I10 Essential (primary) hypertension; I48.91 Unspecified atrial fibrillation; G40.909 Epilepsy, unspecified, not intractable, without status epilepticus; J44.9 Chronic obstructive pulmonary disease, unspecified; F32.A Depression, unspecified; K25.9 Gastric ulcer, unspecified as acute or chronic, without hemorrhage or perforation; R79.89 Other specified abnormal findings of blood chemistry; D72.829 Elevated white blood cell count, unspecified; E78.5 Hyperlipidemia, unspecified; I73.9 Peripheral vascular disease, unspecified; Z95.1 Presence of aortocoronary bypass graft; Z79.01 Long term (current) use of anticoagulants; Z79.890 Hormone replacement therapy; F15.10 Other stimulant abuse, uncomplicated; Z72.0 Tobacco use; Z86.59 Personal history of other mental and behavioral disorders
CPT/HCPCS: 36415; 71045; 74177; 78452; 80048; 80053; 80306; 80307; 81001; 83690; 83735; 84484; 85025; 86850; 86900; 86901; 93005; 93017; A9502; J2270; J2405; J2785; Q9967

== ENCOUNTER 2024-03-28 09:34 | Emergency (ER) | payer OTHER ==
[~2024-03-28 09:34] MED LIST changes: +Iopamidol 370 76% 100 ML VIAL ONE; -Iopamidol-370 76% 500 ML MDV (1 ML CHARGE) ONE
[2024-03-28] MEDS ORDERED: Furosemide 40 MG (4 mL) VIAL ONE (10:10)
[2024-03-28 10:30] LABS: #Basophils 0.07 10x3/uL (0.0-0.2); %Basophils 0.6 % (0.0-1.0); %Eosinophils 1.8 % (0.0-10.0); %Lymphocytes 10.5 % (21.0-51.0); %Monocytes 7.4 % (0.0-10.0); %Neutrophils 78.7 % (42.0-75.0); Hematocrit 26.6 % (42.0-52.0); Hemoglobin 8.1 g/dL (14.0-18.0); Mean Corpuscular HGB CONC 30.5 g/dL (32.0-36.0); Mean Corpuscular Hemoglobin 25.6 pg (27.0-31.0); Mean Corpuscular Volume 83.9 fL (78.0-98.0); Mean Platelet Volume 8.7 fL (7.4-10.4); Platelet Count 349 10x3/uL (130-400); RBC Distribution Width 18.6 % (11.5-14.5); Red Blood Cell (RBC) Count 3.17 mill/uL (4.70-6.10)
[2024-03-28 11:11] LABS: Troponin I Less than 0.010 ng/mL (< 0.028)
[2024-03-28 11:21] LABS: ALT (SGPT) 22 U/L (Less than 45); Albumin 3.2 g/dL (3.1-4.5); Alkaline Phosphatase 185 U/L (40-110); Anion Gap 14 mmol/L (10-20); BUN (Urea Nitrogen) 17 mg/dL (8.4-25.7); Bilirubin, Total 1.2 mg/dL (0.3-1.2); Calc. Creatinine Clearance 0 mL/min (70-130); Calcium 8.6 mg/dL (7.8-10.44); Carbon Dioxide 25 mmol/L (23-31); Chloride 106 mmol/L (98-107); Estimated GFR 97; Glucose 136 mg/dL (80-115); Potassium 4.1 mmol/L (3.5-5.1); Protein, Total 7.2 g/dL (5.8-8.1); Sodium 141 mmol/L (136-145)
[2024-03-28 11:29] LABS: AST (SGOT) 20 U/L (11-34)
[2024-03-28] MEDS ORDERED: Ipratropium/Albuterol 3 ML NEB ONE (12:41)
== END 2024-03-28 14:25 | disposition home or self-care (01) ==
LOC: ERS 09:34
DX: R60.0 Localized edema (principal); R06.02 Shortness of breath; F17.210 Nicotine dependence, cigarettes, uncomplicated; J44.9 Chronic obstructive pulmonary disease, unspecified
CPT/HCPCS: 71045; 71275; 80053; 83880; 84484; 85025; 93005; 94640; 94760; 96374; J1940; J7620; Q9967

== ENCOUNTER 2024-09-21 09:00 | Inpatient (IN) | payer OTHER ==
[2024-09-27 08:11] VITALS: BMI 25.1
[2024-09-27 08:37] LABS: #Basophils 0.08 10x3/uL (0.0-0.2); #Eosinophils 0.17 10x3/uL (0.0-0.7); #Monocytes 0.94 10x3/uL (0.11-0.59); #Neutrophils 6.30 10x3/uL (1.40-6.50); %Basophils 0.8 % (0.0-1.0); %Eosinophils 1.7 % (0.0-10.0); %Lymphocytes 22.6 % (21.0-51.0); %Monocytes 9.6 % (0.0-10.0); %Neutrophils 64.7 % (42.0-75.0); Hematocrit 42.3 % (42.0-52.0); Hemoglobin 13.0 g/dL (14.0-18.0); Mean Corpuscular Hemoglobin 23.3 pg (27.0-31.0); Mean Corpuscular Volume 75.9 fL (78.0-98.0); Platelet Count 236 10x3/uL (130-400); Red Blood Cell (RBC) Count 5.57 mill/uL (4.70-6.10); White Blood Cell (WBC) Count 9.75 10x3/uL (4.8-10.8)
[2024-09-27 08:53] LABS: INR-International Normal Ratio 1.0; Prothrombin Time 13.4 sec (12.0-14.7)
[2024-09-27 08:54] LABS: PTT 25.8 sec (22.9-36.1)
[2024-09-27 09:01] LABS: ALT (SGPT) 40 U/L (Less than 45); AST (SGOT) 30 U/L (11-34); Albumin 4.1 g/dL (3.1-4.5); Alkaline Phosphatase 177 U/L (40-110); Anion Gap 15 mmol/L (10-20); BUN (Urea Nitrogen) 24 mg/dL (8.4-25.7); Bilirubin, Total 0.8 mg/dL (0.3-1.2); Calc. Creatinine Clearance 0 mL/min (70-130); Calcium 9.0 mg/dL (7.8-10.44); Carbon Dioxide 23 mmol/L (23-31); Chloride 105 mmol/L (98-107); Globulin 3.5 g/dL (2.4-3.5); Glucose 81 mg/dL (80-115); Potassium 4.7 mmol/L (3.5-5.1); Sodium 138 mmol/L (136-145)
[2024-09-28] MEDS ORDERED: Lidocaine 2% PF 100 mg/5 ml Syringe ONE (06:50)
[2024-09-28] MEDS ORDERED: SUGAMMADEX SODIUM 200 MG/2 ML VIAL ONE ×2 (06:50→11:02)
[2024-09-28] MEDS ORDERED: fentaNYL PF 100 MCG/2 ML SYRINGE ONE (06:51)
[2024-09-28] MEDS ORDERED: Sodium Chloride 0.9% 250 ML 0 ML ONE (06:51)
[2024-09-28] MEDS ORDERED: Lidocaine 1% (PF) 30 ML VIAL ONE (06:56)
[2024-09-28] MEDS ORDERED: Heparin 10,000 UNITS/ 10 ML VIAL ONE ×2 (06:56→09:42)
[2024-09-28] MEDS ORDERED: CEFAZOLIN 2 GM VIAL ONE ×2 (06:56→09:42)
[2024-09-28 07:56] LABS: Tricyclic Screen Negative (Negative)
[2024-09-28 09:33] LABS: Cocaine Metabolite Screen Negative (Negative); THC/Cannabinoid Screen Negative (Negative); Tricyclic Screen Negative (Negative)
[2024-09-28 10:35] LABS: Cocaine Metabolite Screen Negative (Negative); THC/Cannabinoid Screen Negative (Negative)
[2024-09-28] MEDS ORDERED: Ondansetron PF 4 MG/2 ML Vial ONE (11:02)
[2024-09-28] MEDS ORDERED: PROPOFOL 200 MG/20 ML VIAL ONE (11:02)
[2024-09-28] MEDS ORDERED: Rocuronium Bromide 10 MG/ML (10ML VIAL) ONE (11:02)
[2024-09-28] MEDS ORDERED: PHENYLEPHRINE-NS 100 MCG/ML 10 ML SYRINGE ONE (11:02)
[2024-09-28] MEDS ORDERED: Iopamidol 370 76% 100 ML VIAL ONE (11:03)
== END 2024-09-28 16:57 | disposition home or self-care (01) | DRG 274 ==
LOC: SURG A 09-28 06:07 → EDSTATUS 09-28 09:00
PROVIDERS: ADMIT Internal Medicine Cardiovascular Disease; ATTEND Internal Medicine Cardiovascular Disease
PROC: 02L73DK Occlusion of Left Atrial Appendage with Intraluminal Device, Percutaneous Approach (ICD-10-PCS; principal; 2024-09-28)
PROC: B245ZZ4 Ultrasonography of Left Heart, Transesophageal (ICD-10-PCS; 2024-09-28)
PROC: 3E03329 Introduction of Other Anti-infective into Peripheral Vein, Percutaneous Approach (ICD-10-PCS; 2024-09-28)
DX: I48.19 Other persistent atrial fibrillation (principal); Z00.6 Encounter for examination for normal comparison and control in clinical research program; G40.909 Epilepsy, unspecified, not intractable, without status epilepticus; J44.9 Chronic obstructive pulmonary disease, unspecified; N18.9 Chronic kidney disease, unspecified; I25.10 Atherosclerotic heart disease of native coronary artery without angina pectoris; Z95.1 Presence of aortocoronary bypass graft; Z87.891 Personal history of nicotine dependence; Z98.890 Other specified postprocedural states; Z87.11 Personal history of peptic ulcer disease; Z88.1 Allergy status to other antibiotic agents; Z88.8 Allergy status to other drugs, medicaments and biological substances; Z79.51 Long term (current) use of inhaled steroids; Z79.899 Other long term (current) drug therapy; Z79.82 Long term (current) use of aspirin
CPT/HCPCS: 33340; 70450; 80053; 80306; 85025; 85347; 85610; 85730; 86850; 86900; 86901; 93306; 93312; C1753; C1760; C1769; C1889; C1893; C1894; J1100; J1644; J2003; J2405; J2704; J2720; J3010; J7050; Q9967

== ENCOUNTER 2024-09-27 07:46 | Outpatient (CLI) | payer OTHER | END 2024-09-27 07:47 | disposition home or self-care (01) | LOC: LABBT 07:46 | PROVIDERS: ATTEND Internal Medicine Cardiovascular Disease | DX: Z01.810 Encounter for preprocedural cardiovascular examination (principal); I48.19 Other persistent atrial fibrillation; K92.2 Gastrointestinal hemorrhage, unspecified | CPT/HCPCS: 93005; 93010 ==